=== PATIENT | female | born 1975 | race Caucasian/White ===

== ENCOUNTER → 2016-10-05 | Outpatient (CLI) | payer BC ==
--- NOTE | 2016-10-05 13:32 | XR ---
Lumbosacral spine HISTORY: Low back pain 5 views of the lumbosacral spine Bone mineralization, joint spaces and alignment are maintained. Surgical clips present in the upper a bdomen. There is a mild spinal curvature. No evident spondylolysis. Loss of disc height present at L5 -S1, there is associated spondylosis. Sclerosis present in the posterior elements compatible with fac et arthropathy. IMPRESSION: Degenerative disc disease, consider lumbar MRI. Facet arthropathy L5-S1.
== END | disposition home or self-care (01) ==
LOC: RADXRYALE 10:48
PROVIDERS: ATTEND Internal Medicine
DX: M51.37 Other intervertebral disc degeneration, lumbosacral region (principal); M46.07 Spinal enthesopathy, lumbosacral region
CPT/HCPCS: 72110

== ENCOUNTER → 2016-10-23 | Outpatient (CLI) | payer BC ==
--- NOTE | 2016-10-23 15:59 | MR ---
EXAMINATION TYPE: MR lumbar spine wo con DATE OF EXAM: 10/23/2016 COMPARISON: NONE HISTORY: 40-year-old female with low back pain into left leg, numbness in left leg TECHNIQUE: Multiplanar, multisequence images of the lumbar spine were acquired. FINDINGS: Vertebral body heights are preserved and alignment is maintained. No suspicious bone marrow replacement. Conus medullaris is normal. There is mild facet degenerative change within the lower lumbar spine. Additional degenerative disc disease at L4-L5 and L5-S1 with disc desiccation. There is moderate to s evere disc height loss at L5-S1 and bulging discs at both levels with posterior annular fissures. Modic type II fatty endplate change at L5-S1. From T12 through L4 levels, no significant spinal canal or neuroforaminal stenosis. At L4-L5, there is mild facet degenerative change in the small central disc protrusion with annular f issure. This impresses on the ventral thecal sac but does not contribute any significant spinal canal or neuroforaminal stenosis. At L5-S1, there is a broad-based central disc protrusion with annular fissure. Disc material closely approaches and may abut the traversing left S1 nerve root, sagittal images 5 and 6. On the right, dis c material closely approaches the nerve root without clear nerve root abutment. There is also mild na rrowing of the bilateral neuroforamina. No prevertebral or paravertebral soft tissue abnormality. IMPRESSION: 1. Moderate to severe degenerative disc disease at L5-S1 with associated Modic type II endplate harrison e. Mild degenerative disc disease at L4-L5. Annular fissures at both of these levels. 2. Along with mild facet arthropathy lower lumbar spine, there is mild narrowing of the bilateral L5- S1 neuroforamina. 3. At L5-S1, disc material closely approaches and may abut the traversing left S1 nerve root.
== END | disposition home or self-care (01) ==
LOC: RADMRIMAIN 13:04
PROVIDERS: ATTEND Internal Medicine
DX: M99.73 Connective tissue and disc stenosis of intervertebral foramina of lumbar region (principal); M51.36 Other intervertebral disc degeneration, lumbar region; M51.37 Other intervertebral disc degeneration, lumbosacral region; M46.86 Other specified inflammatory spondylopathies, lumbar region
CPT/HCPCS: 72148

== ENCOUNTER → 2017-06-11 | Outpatient (CLI) | payer BC | END | disposition home or self-care (01) | LOC: RADECHMAIN 12:36 | PROVIDERS: ATTEND Internal Medicine | DX: R00.0 Tachycardia, unspecified (principal) | CPT/HCPCS: 93270; 93271 ==

== ENCOUNTER → 2018-01-30 | Outpatient (CLI) | payer BC ==
--- NOTE | 2018-01-30 13:45 | XR ---
EXAMINATION TYPE: XR chest 2V DATE OF EXAM: 01/30/2018 COMPARISON: NONE TECHNIQUE: PA and lateral views submitted. HISTORY: CHEST PAIN FINDINGS: The lungs are clear and there is no pneumothorax, pleural effusion, or focal pneumonia. Mild cardio megaly. IMPRESSION: 1. No acute process.
== END ==
LOC: RADXRYALE 13:20
PROVIDERS: ATTEND Internal Medicine
DX: R07.89 Other chest pain (principal)
CPT/HCPCS: 71046

== ENCOUNTER 2019-01-23 11:41 | Observation (INO) | payer BC ==
--- NOTE | 2019-01-23 12:12 | ED ---
General Adult HPI - General Chief complaint: Headache Stated complaint: Headache Time Seen by Provider: 01/23/19 11:53 Source: patient, RN notes reviewed Mode of arrival: ambulatory Limitations: no limitations - History of Present Illness Initial comments: Patient is a pleasant 43-year-old female presenting to the emergency department with complaint of headache. Patient does have chronic headaches. Patient has had headaches similar to this a proximally 4 times previously. Headache occurred yesterday afternoon. Patient states headache was 5 or 6/10. Discomfort was the top of her head somewhat on the left side. Patient still has mild discomfort, near resolved. Patient states discomfort did feel like there was fluid going from the top of her head down to the left side. Patient has previously had this for times in the past. Patient also had some sharp sided chest discomfort yesterday. No associated dyspnea, nausea, or diaphoresis. Lisbeth cardenas has had similar chest discomfort previously. No chest discomfort since that time. Chest discomfort yesterday lasted around 15 minutes. - Related Data Home Medications Medication Instructions Recorded Confirmed Cyclobenzaprine [Flexeril] 5 mg PO HS PRN 01/23/19 01/23/19 Lisinopril [Zestril] 5 mg PO DAILY 01/23/19 01/23/19 Metoprolol Succinate [Toprol XL] 12.5 mg PO HS 01/23/19 01/23/19 Allergies Allergy/AdvReac Type Severity Reaction Status Date / Time hydromorphone HCl Allergy Abdominal Verified 01/23/19 12:08 [From Dilaudid] Pain Review of Systems ROS Statement: Those systems with pertinent positive or pertinent negative responses have been documented in the HPI. ROS Other: All systems not noted in ROS Statement are negative. Constitutional: Denies: fever Eyes: Denies: eye pain, vision change ENT: Denies: ear pain Respiratory: Denies: dyspnea Cardiovascular: Reports: as per HPI. Denies: palpitations Endocrine: Denies: fatigue Genitourinary: Denies: dysuria Musculoskeletal: Denies: back pain Skin: Denies: rash Neurological: Reports: as per HPI. Denies: weakness, confusion Past Medical History Past Medical History: Osteoarthritis (OA) Additional Past Medical History / Comment(s): MIGRAINES, History of Any Multi-Drug Resistant Organisms: None Reported Past Surgical History: Section, Cholecystectomy, Orthopedic Surgery Additional Past Surgical History / Comment(s): ARTHROPSCOPIC RIGHT KNEE, GASTRIC SLEEVE, ESSURE Past Anesthesia/Blood Transfusion Reactions: Previous Problems w/ Anesthesia Additional Past Anesthesia/Blood Transfusion Reaction / Comment(s): PROBLEMS WITH INTUBATION" Past Psychological History: No Psychological Hx Reported Smoking Status: Never smoker Past Alcohol Use History: Rare Past Drug Use History: None Reported - Past Family History Mother Family Medical History: Deep Vein Thrombosis (DVT) General Exam Limitations: no limitations General appearance: alert, in no apparent distress Head exam: Present: normocephalic Eye exam: Present: normal appearance, PERRL, EOMI. Absent: nystagmus ENT exam: Present: normal oropharynx Neck exam: Present: normal inspection Respiratory exam: Present: normal lung sounds bilaterally. Absent: chest wall tenderness Cardiovascular Exam: Present: regular rate, normal rhythm Expanded Peripheral pulses: 2+: Radial (R), Radial (L) GI/Abdominal exam: Present: soft. Absent: tenderness Extremities exam: Present: normal inspection. Absent: pedal edema, calf t enderness Neurological exam: Present: alert, CN II-XII intact. Absent: motor sensory deficit Expanded Neurological exam: Present: protecting the airway Cranial nerves: EOM's Intact: Normal Motor strength exam: RUE: 5, LUE: 5, RLE: 5, LLE: 5 Eye Response: (4) open spontaneously Motor Response: (6) obeys commands Verbal Response: (5) oriented Psychiatric exam: Present: normal affect, normal mood Skin exam: Present: normal color Course Vital Signs 01/23/19 01/23/19 01/23/19 11:50 12:40 14:49 Temperature 97.7 F Pulse Rate 74 70 79 Respiratory 20 18 18 Rate Blood Pressure 156/104 149/96 175/91 O2 Sat by Pulse 98 97 100 Oximetry EKG Findings - EKG Comments: EKG Findings:: Normal sinus rhythm 80. LA 144. QRS 94. QT 362. QTC 417. Normal axis. Normal QRS. Nonspecific T waves. Medical Decision Making - Medical Decision Making Patient reevaluated and resting comfortably in bed. Patient updated on results and plan. Case was discussed in detail with Dr. Núñez, who will admit covering for Dr. Presley. - Lab Data Result diagrams: 01/23/19 12:35 01/23/19 12:35 Lab Results 01/23/19 01/23/19 01/23/19 Range/Units 12:35 12:35 12:35 WBC 6.7 (3.8-10.6) k/uL RBC 4.27 (3.80-5.40) m/uL Hgb 12.1 (11.4-16.0) gm/dL Hct 38.5 (34.0-46.0) % MCV 90.0 (80.0-100.0) fL MCH 28.4 (25.0-35.0) pg MCHC 31.6 (31.0-37.0) g/dL RDW 13.0 (11.5-15.5) % Plt Count 316 (150-450) k/uL Neutrophils % 63 % Lymphocytes % 29 % Monocytes % 5 % Eosinophils % 1 % Basophils % 1 % Neutrophils # 4.2 (1.3-7.7) k/uL Lymphocytes # 1.9 (1.0-4.8) k/uL Monocytes # 0.4 (0-1.0) k/uL Eosinophils # 0.1 (0-0.7) k/uL Basophils # 0.1 (0-0.2) k/uL PT 10.1 (9.0-12.0) sec INR 0.9 (<1.2) APTT 26.9 (22.0-30.0) sec D-Dimer <0.17 (<0.60) mg/L FEU Sodium 140 (137-145) mmol/L Potassium 4.2 (3.5-5.1) mmol/L Chloride 108 H (98-107) mmol/L Carbon Dioxide 28 (22-30) mmol/L Anion Gap 4 mmol/L BUN 8 (7-17) mg/dL Creatinine 0.56 (0.52-1.04) mg/dL Est GFR (CKD-EPI)AfAm >90 (>60 ml/min/1.73 sqM) Est GFR (CKD-EPI)NonAf >90 (>60 ml/min/1.73 sqM) Glucose 93 (74-99) mg/dL Calcium 9.1 (8.4-10.2) mg/dL Magnesium 1.6 (1.6-2.3) mg/dL Total Bilirubin 0.3 (0.2-1.3) mg/dL AST 17 (14-36) U/L ALT 19 (9-52) U/L Alkaline Phosphatase 57 (38-126) U/L Troponin I (0.000-0.034) ng/mL Total Protein 6.8 (6.3-8.2) g/dL Albumin 3.8 (3.5-5.0) g/dL 01/23/19 Range/Units 12:35 WBC (3.8-10.6) k/uL RBC (3.80-5.40) m/uL Hgb (11.4-16.0) gm/dL Hct (34.0-46.0) % MCV (80.0-100.0) fL MCH (25.0-35.0) pg MCHC (31.0-37.0) g/dL RDW (11.5-15.5) % Plt Count (150-450) k/uL Neutrophils % % Lymphocytes % % Monocytes % % Eosinophils % % Basophils % % Neutrophils # (1.3-7.7) k/uL Lymphocytes # (1.0-4.8) k/uL Monocytes # (0-1.0) k/uL Eosinophils # (0-0.7) k/uL Basophils # (0-0.2) k/uL PT (9.0-12.0) sec INR (<1.2) APTT (22.0-30.0) sec D-Dimer (<0.60) mg/L FEU Sodium (137-145) mmol/L Potassium (3.5-5.1) mmol/L Chloride (98-107) mmol/L Carbon Dioxide (22-30) mmol/L Anion Gap mmol/L BUN (7-17) mg/dL Creatinine (0.52-1.04) mg/dL Est GFR (CKD-EPI)AfAm (>60 ml/min/1.73 sqM) Est GFR (CKD-EPI)NonAf (>60 ml/min/1.73 sqM) Glucose (74-99) mg/dL Calcium (8.4-10.2) mg/dL Magnesium (1.6-2.3) mg/dL Total Bilirubin (0.2-1.3) mg/dL AST (14-36) U/L ALT (9-52) U/L Alkaline Phosphatase (38-126) U/L Troponin I <0.012 (0.000-0.034) ng/mL Total Protein (6.3-8.2) g/dL Albumin (3.5-5.0) g/dL - Radiology Data Radiology results: report reviewed (Computed tomography scan of the brain and CTA of the brain revealed no acute process. No aneurysm.), image reviewed (Chest x-ray shows no acute process) Disposition Clinical Impression: Headache, Chest pain Disposition: ADMITTED IP TO THIS HOSP Is patient prescribed a controlled substance at d/c from ED?: No Referrals: Caroline Presley MD [Primary Care Provider] - 1-2 days Decision Time: 15:37
[2019-01-23 12:59] LABS: Basophils # (A) 0.1 k/uL (0-0.2); Basophils % (A) 1 %; Eosinophils # (A) 0.1 k/uL (0-0.7); Eosinophils % (A) 1 %; HCT 38.5 % (34.0-46.0); HGB 12.1 gm/dL (11.4-16.0); Lymphocytes # (A) 1.9 k/uL (1.0-4.8); Lymphocytes % (A) 29 %; MCH 28.4 pg (25.0-35.0); MCHC 31.6 g/dL (31.0-37.0); Mean Platelet Volume 6.9; Monocytes # (A) 0.4 k/uL (0-1.0); Monocytes % (A) 5 %; Neutrophils # (A) 4.2 k/uL (1.3-7.7); Neutrophils % (A) 63 %; Platelet Count 316 k/uL (150-450); RBC 4.27 m/uL (3.80-5.40); WBC 6.7 k/uL (3.8-10.6)
[2019-01-23 13:08] LABS: ALT 19 U/L (9-52); AST 17 U/L (14-36); African American GFR (CKD) >90 (>60 ml/min/1.73 sqM); Albumin 3.8 g/dL (3.5-5.0); Alkaline Phosphatase 57 U/L (38-126); Anion Gap 4 mmol/L; Blood Urea Nitrogen 8 mg/dL (7-17); Calcium 9.1 mg/dL (8.4-10.2); Carbon Dioxide 28 mmol/L (22-30); Chloride 108 mmol/L (98-107); Glucose 93 mg/dL (74-99); Magnesium 1.6 mg/dL (1.6-2.3); Potassium 4.2 mmol/L (3.5-5.1); Sodium 140 mmol/L (137-145); Total Bilirubin 0.3 mg/dL (0.2-1.3); Total Protein 6.8 g/dL (6.3-8.2)
--- NOTE | 2019-01-23 13:12 | XR ---
EXAMINATION TYPE: XR chest 2V DATE OF EXAM: 01/23/2019 COMPARISON: Chest x-ray January 30, 2018 HISTORY: Chest discomfort and pain. TECHNIQUE: Frontal and lateral views of the chest are obtained. FINDINGS: There is no focal air space opacity, pleural effusion, or pneumothorax seen. The cardiac silhouette size is within normal limits. The osseous structures are intact. Cholecystectomy clips a re redemonstrated. IMPRESSION: No suspicious acute process.
[2019-01-23 13:19] LABS: INR 0.9 (<1.2); Partial Thromboplastin Time 26.9 sec (22.0-30.0); Prothrombin Time 10.1 sec (9.0-12.0)
[2019-01-23 13:28] LABS: D-Dimer <0.17 mg/L FEU (<0.60)
--- NOTE | 2019-01-23 14:54 | CT ---
EXAMINATION TYPE: CT brain wo con DATE OF EXAM: 01/23/2019 COMPARISON: None. HISTORY: Headache after episode of hypertension. CT DLP: 1068 mGycm. Automated Exposure Control for Dose Reduction was Utilized. TECHNIQUE: CT scan of the head is performed without contrast. FINDINGS: There is no acute intracranial hemorrhage, mass effect, or midline shift identified. The ventricles and sulci are within normal limits in size. Possible small arachnoid cyst high right fron alexis lobe axial image 44 measuring 2.3 x 1.5 cm. Possible small arachnoid cyst in the posterior aspect of the posterior fossa coronal image 58 for reference. The globes are intact and the visualized sinu ses are clear. IMPRESSION: No acute intracranial hemorrhage or midline shift is seen.
--- NOTE | 2019-01-23 14:58 | CT ---
EXAMINATION TYPE: CT angio head DATE OF EXAM: 01/23/2019 2:45 PM COMPARISON: Same day noncontrast CT. HISTORY: Headache post bout of high blood pressure CT DLP: 223.3 mGycm Automated exposure control for dose reduction was used. TECHNIQUE: Performed with IV Contrast, patient injected with 100 mL of Isovue 370. 3D reconstructed images are created on an independent workstation and reviewed.. FINDINGS: There is codominant vertebrobasilar system. Vertebral arteries are patent to basilar junction. There are hypoplastic bilateral posterior communicating arteries. There is no significant focal stenosis or aneurysmal change in the posterior circulation. Images of the anterior circulation show patent anterior communicating artery. No significant focal st enosis or aneurysmal change is seen. IMPRESSION: No aneurysmal change at the level of [place].
[2019-01-23] MEDS ORDERED: ASPIRIN 81 MG PO STA (15:37)
[2019-01-23] MEDS ORDERED: NITROGLYCERIN SL TABS 0.4 MG TAB SUBLINGUAL PRN (15:39)
[2019-01-23] MEDS ORDERED: LISINOPRIL 5 MG TAB PO STA (15:43)
[2019-01-23] MEDS ORDERED: METOPROLOL SUCCINATE (ER) 25 MG TAB.ER.24H PO STA (15:43)
[2019-01-23 16:30] VITALS: BMI 37.3
[2019-01-23] MEDS ORDERED: LISINOPRIL-HCTZ 20-12.5 MG 1 EACH TAB PO STA (18:29)
--- NOTE | 2019-01-23 18:55 | P.CRDCN ---
History of Present Illness History of present illness: This is Dr. Minor dictating a consult on this patient The patient was interviewed and examined by me Patient of Dr. Caroline Presley IMPRESSION / ASSESSMENT: Essential hypertension, uncontrolled/accelerated Lipid panel unknown Patient presented with headache which is now resolved line she did complain of chest discomfort under her left breast. First ECG is normal first troponin is normal Obesity, status post acid bypass surgery Past history of rapid heartbeat/palpitations, event monitor has shown a brief run of nonsustained ventricular tachycardia but during that period of event valeria toring she had no symptoms and definitely did not experience the usual palpitations Family history of DVT and pulmonary embolism, genetic evaluation not done. No personal history of DVT or pulmonary members and PLAN: Stop aspirin *Lisinopril hydrochlorothiazide 20/12.5 mg by mouth daily Lipid panel TSH and cortisol level I would recommend genetic workup and family for hypercoagulable state Low salt diet Home blood pressure monitoring Follow-up within 1-2 weeks I think this patient should not go home within the next 12 hours, continue lisinopril. 520/12.5 mg by mouth daily for 1-2 weeks before readjusting medications Home blood pressure monitoring and low-salt diet HPI 43-year-old female presenting with severe headache. She had a CTA and head CT. No abnormality noted Her blood pressures were quite high. Systolic and diastolic She has a history of obesity status post gastric bypass surgery almost [address] Olsen History and her blood pressure is high she was complaining of some discomfort under her left breast She is a past history of palpitations that were quite symptomatic about 2 years back She will event monitor but during the period of event monitoring she did not have any palpitations. Apparently nonsustained ventricular tachycardia was noted and she was treated by Dr. Caldwell with beta blockers She does not tolerate beta blockers well At the time my examination her blood pressure is still high at 161/92 mmHg on 75/90 1 mmHg and 149/96. His mercury She does not have any chest pain at this time nor does she have a headache ROS: No fever chills or rigors, no cough, phlegm or expectoration, no nausea, vomiting or diarrhea, no hematuria, dysuria, no musculoskeletal complaints, no strokes or seizures, no skin lesions. EXAMINATION: On admission her blood pressure was 156/104, 149/96 and 175/91 mmHg pulse rate in the 70s Normal respirations normal pulse ox Afebrile 97.7F At this time her blood pressure is still elevated Normal heart sounds normal S1 normal S2 Breath sounds are clear no rhonchi no crackles Abdomen is soft nontender Extent is warm no edema REVIEW OF LABS, ECG & MEDICAL DATA Twelve-lead ECG shows sinus rhythm normal NH narrow QRS normal delta waves normal QT interval normal ST segments CT of the head did not show any aneurysm in the [place] Hemoglobin 12.1 platelet count 316,000, white count 6 and 7000 Sodium 140, potassium 4.2, BUN 8, creatinine 0.56 First troponin is normal Follow 12-lead ECG shows sinus rhythm no change in ST segments as compared to the first ECG Past Medical History Past Medical History: Hypertension, Osteoarthritis (OA), Supraventricular Tachycardia (SVT) Additional Past Medical History / Comment(s): MIGRAINES, History of Any Multi-Drug Resistant Organisms: None Reported Past Surgical History: Section, Cholecystectomy, Orthopedic Surgery Additional Past Surgical History / Comment(s): ARTHROPSCOPIC RIGHT KNEE, GASTRIC SLEEVE, ESSURE Past Anesthesia/Blood Transfusion Reactions: Previous Problems w/ Anesthesia Additional Past Anesthesia/Blood Transfusion Reaction / Comment(s): PROBLEMS WITH INTUBATION" Past Psychological History: No Psychological Hx Reported Smoking Status: Never smoker Past Alcohol Use History: Rare Past Drug Use History: None Reported - Past Family History Mother Family Medical History: Deep Vein Thrombosis (DVT) Medications and Allergies Home Medications Medication Instructions Recorded Confirmed Type Cyclobenzaprine [Flexeril] 5 mg PO HS PRN 01/23/19 01/23/19 History Lisinopril [Zestril] 5 mg PO DAILY 01/23/19 01/23/19 History Metoprolol Succinate [Toprol XL] 12.5 mg PO HS 01/23/19 01/23/19 History Allergies Allergy/AdvReac Type Severity Reaction Status Date / Time hydromorphone HCl Allergy Abdominal Verified 01/23/19 12:08 [From Dilaudid] Pain Physical Exam Vitals: Vital Signs Temp Pulse Pulse Resp BP BP Pulse Ox 01/23/19 16:23 97.5 F L 66 18 161/92 100 01/23/19 16:01 98.0 F 76 18 139/90 100 01/23/19 16:00 66 18 01/23/19 14:49 79 18 175/91 100 01/23/19 12:40 70 18 149/96 97 01/23/19 11:50 97.7 F 74 20 156/104 98 Intake and Output 01/23/19 01/23/19 01/23/19 06:59 14:59 22:59 Other: Voiding Method Toilet Weight 107.955 kg Results 01/23/19 12:35 01/23/19 12:35 Cardiac Enzymes 01/23/19 01/23/19 Range/Units 12:35 12:35 AST 17 (14-36) U/L Troponin I <0.012 (0.000-0.034) ng/mL Coagulation 01/23/19 Range/Units 12:35 PT 10.1 (9.0-12.0) sec APTT 26.9 (22.0-30.0) sec CBC 01/23/19 Range/Units 12:35 WBC 6.7 (3.8-10.6) k/uL RBC 4.27 (3.80-5.40) m/uL Hgb 12.1 (11.4-16.0) gm/dL Hct 38.5 (34.0-46.0) % Plt Count 316 (150-450) k/uL Comprehensive Metabolic Panel 01/23/19 Range/Units 12:35 Sodium 140 (137-145) mmol/L Potassium 4.2 (3.5-5.1) mmol/L Chloride 108 H (98-107) mmol/L Carbon Dioxide 28 (22-30) mmol/L BUN 8 (7-17) mg/dL Creatinine 0.56 (0.52-1.04) mg/dL Glucose 93 (74-99) mg/dL Calcium 9.1 (8.4-10.2) mg/dL AST 17 (14-36) U/L ALT 19 (9-52) U/L Alkaline Phosphatase 57 (38-126) U/L Total Protein 6.8 (6.3-8.2) g/dL Albumin 3.8 (3.5-5.0) g/dL Current Medications Generic Name Dose Route Start Last Admin Trade Name Freq PRN Reason Stop Dose Admin Aspirin 325 mg 01/24/19 09:00 Aspirin PO DAILY SHELLI Lisinopril/HCTZ 1 each 01/24/19 09:00 Zestoretic 20-12.5 PO DAILY SHELLI Nitroglycerin 0.4 mg 01/23/19 15:39 Nitrostat SUBLINGUAL Q5M PRN Chest Pain Sodium Chloride 10 ml 01/23/19 21:00 Saline Flush IV BID SHELLI Intake and Output 01/23/19 01/23/19 01/23/19 06:59 14:59 22:59 Other: Voiding Method Toilet Weight 107.955 kg Patient Weight 01/24/19 06:59 Weight 107.955 kg 01/23/19 12:35 01/23/19 12:35
--- NOTE | 2019-01-23 22:15 | P.HPIM ---
History of Present Illness H&P Date: 01/23/19 Chief Complaint: Chest pain Patient is a 43-year-old female known history of hypertension, migraine headache, status post gastric bypass surgery, SVT currently on metoprolol and low-dose came to ER with complaints of headache. Patient says that she had sharp chest pain followed by 15 minutes at her patient had severe headache in the middle of the head. Chest pain is mainly left retrosternal under the left breast and lateral side of chest. Patient denied any radiation of the chest pain. Nose is sedated nausea vomiting or diaphoresis. Patient recommended by PCP to go to ER. Patient does have chronic migraine headache. Patient has history of event monitor placement. Chest pain lasted for 15 minutes. Patient is currently chest pain-free. CARMINE showed normal sinus rhythm. Patient had CT head and CT angiogram of the head was done showed no aneurysm and no acute intracranial process was noted. D-dimer not elevated Troponin 2 negative. Review of Systems Constitutional: Patient denies any fever or chills . No generalized weakness or weight loss. Abdomen: Patient denied nausea vomiting and diarrhea and abdominal pain. Cardiovascular: Chest pain without short of breath no palpitations. Respiratory: patient denied any cough is from production. No shortness of breath Neurologic: Patient denied any numbness or tingling patient does have headache. Musculoskeletal: Patient denies any complaints of joint swelling or deformity. Skin: Negative Psychiatric: Negative Endocrine: No heat or cold intolerance. No recent weight gain. Genitourinary: No dysuria or hematuria. All other 14 point ROS negative except the above Past Medical History Past Medical History: Hypertension, Osteoarthritis (OA), Supraventricular Tachycardia (SVT) Additional Past Medical History / Comment(s): MIGRAINES, History of Any Multi-Drug Resistant Organisms: None Reported Past Surgical History: Section, Cholecystectomy, Orthopedic Surgery Additional Past Surgical History / Comment(s): ARTHROPSCOPIC RIGHT KNEE, GASTRIC SLEEVE, ESSURE Past Anesthesia/Blood Transfusion Reactions: Previous Problems w/ Anesthesia Additional Past Anesthesia/Blood Transfusion Reaction / Comment(s): PROBLEMS WITH INTUBATION" Past Psychological History: No Psychological Hx Reported Smoking Status: Never smoker Past Alcohol Use History: Rare Past Drug Use History: None Reported - Past Family History Mother Family Medical History: Deep Vein Thrombosis (DVT) Medications and Allergies Home Medications Medication Instructions Recorded Confirmed Type Cyclobenzaprine [Flexeril] 5 mg PO HS PRN 10/11/19 10/11/19 History Lisinopril-Hctz 20-12.5 mg 1 tab PO DAILY #90 tab 01/23/19 Rx [Zestoretic 20-12.5] Allergies Allergy/AdvReac Type Severity Reaction Status Date / Time hydromorphone HCl Allergy Abdominal Verified 01/23/19 12:08 [From Dilaudid] Pain Physical Exam Vitals: Vital Signs Temp Pulse Pulse Resp BP BP Pulse Ox 01/23/19 19:47 71 17 01/23/19 19:33 97.9 F 71 17 121/83 98 01/23/19 16:23 97.5 F L 66 18 161/92 100 01/23/19 16:01 98.0 F 76 18 139/90 100 01/23/19 16:00 66 18 01/23/19 14:49 79 18 175/91 100 01/23/19 12:40 70 18 149/96 97 01/23/19 11:50 97.7 F 74 20 156/104 98 Intake and Output 01/23/19 01/23/19 01/23/19 06:59 14:59 22:59 Other: Voiding Method Toilet Weight 107.955 kg PHYSICAL EXAMINATION: Patient is lying in the bed comfortably, no acute distress, awake alert and oriented.. HEENT: Normocephalic. Neck is supple. Pupils reactive. Nostrils clear. Oral cavity is moist. Ears reveal no drainage. Neck reveals no JVD, carotid bruits, or thyromegaly. CHEST EXAMINATION: Trachea is central. Symmetrical expansion. Lung echevarria clear to auscultation and percussion. CARDIAC: Normal S1, S2 with no gallops. No murmurs ABDOMEN: Soft. Bowel sounds normal. No organomegaly. No abdominal bruits. Extremities: reveal no edema. No clubbing or cyanosis Neurologically awake, alert, oriented x3 with well-coordinated movements. No focal deficits noted Skin: No rash or skin lesions. Psychiatric: Coperative. Nonsuicidal Musculoskeletal: No joint swelling or deformity. Normal range of motion. Results CBC & Chem 7: 01/23/19 12:35 01/23/19 12:35 Labs: Abnormal Lab Results - Last 24 Hours (Table) 01/23/19 Range/Units 12:35 Chloride 108 H (98-107) mmol/L Thrombosis Risk Factor Assmnt - DVT/VTE Prophylaxis DVT/VTE Prophylaxis: Pharmacologic Prophylaxis ordered - Choose All That Apply Any of the Below Risk Factors Present?: Yes Each Factor Represents 1 point: Age 41-60 years, Obesity (BMI >25) Other Risk Factors: No Thrombosis Risk Factor Assessment Total Risk Factor Score: 2 Thrombosis Risk Factor Assessment Level: Low Risk Assessment and Plan Assessment: Chest pain/chest discomfort along with headache. Resolving now. Ruled out ACS. Uncontrolled hypertension History of migraine headaches. Currently not on any medications. History of SVT History of gastric bypass surgery History of palpitations and event monitor placement with no arrhythmia noted History of left lower leg numbness DVT prophylaxis Plan: Patient will be continued on telemetry monitoring. Serial EKG and troponin 2 negative. Patient was started on lisinopril/hydrochlorothiazide for better blood pressure control. Cardiology is following. Follow-up TSH and cortisol levels. Outpatient workup for hypercoagulable state with account by cardiology. Further recommendations based on the clinical course. Time with Patient: Greater than 30
[2019-01-23] MEDS: HEPARIN SODIUM,PORCINE 5,000 UNIT/ML 1 ML VIAL SQ SCH (23:04)
[2019-01-24] MEDS ORDERED: ACETAMINOPHEN TAB 325 MG TAB PO PRN (06:35)
--- NOTE | 2019-01-24 07:19 | P.PN ---
Progress Note - Text Progress Note Date: 01/24/19 This is a 43-year-old female patient with a past medical history significant for obesity was admitted to the hospital with hypertension emergency. The patient was experiencing headache as well as chest discomfort. On follow-up with her today, she is asymptomatic. She started having very mild headache but no chest pain or chest discomfort. The pressure seems to be under good control. No history of coronary artery disease. From the cardiovascular standpoint of view, the patient need to have a stress test to rule out severe underlying coronary artery disease and that probably can be done as an outpatient. Meanwhile I will continue the current medical regimen. She would like to be discharged home.
[2019-01-24] MEDS: HEPARIN SODIUM,PORCINE 5,000 UNIT/ML 1 ML VIAL SQ SCH (08:00)
[2019-01-24] MEDS ORDERED: LISINOPRIL-HCTZ 20-12.5 MG 1 EACH TAB PO SCH (09:00)
[2019-01-24] MEDS ORDERED: ASPIRIN 325 MG TAB PO SCH (09:00)
[2019-01-24] MEDS ORDERED: ASPIRIN 81 MG PO SCH (09:00)
[2019-01-24 12:06] VITALS: BP 126/82; PULSE 68; RESP 16; TEMP 98.1
--- NOTE | 2019-02-03 20:51 | P.DS ---
Providers Date of admission: 01/23/19 15:39 Expected date of discharge: 01/24/19 Attending physician: Sabine Núñez Consults: 01/23/19 15:39 Consult Physician Urgent Consulting Provider: Jaron Fernández Consult Reason/Comments: cp Do you want consulting provider notified?: Yes Primary care physician: Caroline Presley [facility] Hospital Course: Discharge diagnosis Chest pain/chest discomfort along with headache. Resolving now. Ruled out ACS. Uncontrolled hypertension History of migraine headaches. Currently not on any medications. History of SVT History of gastric bypass surgery History of palpitations and event monitor placement with no arrhythmia noted History of left lower leg numbness DVT prophylaxis . Hospital course Patient is a 43-year-old female known history of hypertension, migraine headache, status post gastric bypass surgery, SVT currently on metoprolol and low-dose came to ER with complaints of headache. Patient says that she had sharp chest pain followed by 15 minutes at her patient had severe headache in the middle of the head. Chest pain is mainly left retrosternal under the left breast and lateral side of chest. Patient denied any radiation of the chest pain. Nose is sedated nausea vomiting or diaphoresis. Patient recommended by PCP to go to ER. Patient does have chronic migraine headache. Patient has history of event monitor placement. Chest pain lasted for 15 minutes. Patient is currently chest pain-free. CARMINE showed normal sinus rhythm. Patient had CT head and CT angiogram of the head was done showed no aneurysm and no acute intracranial process was noted. D-dimer not elevated Troponin 2 negative. Patient was continued on telemetry monitoring. Serial EKG and troponin 2 negative. Patient was started on lisinopril/hydrochlorothiazide for better blood pressure control. Cardiology is following. Follow-up TSH and cortisol levels. Outpatient workup for hypercoagulable state with account by cardiology. Patient currently denied any complaints of chest pain or shortness of breath. Hemodynamically stable PHYSICAL EXAMINATION: Patient is lying in the bed comfortably, no acute distress, awake alert and oriented.. HEENT: Normocephalic. Neck is supple. Pupils reactive. Nostrils clear. Oral cavity is moist. Ears reveal no drainage. Neck reveals no JVD, carotid bruits, or thyromegaly. CHEST EXAMINATION: Trachea is central. Symmetrical expansion. Lung echevarria clear to auscultation and percussion. CARDIAC: Normal S1, S2 with no gallops. No murmurs ABDOMEN: Soft. Bowel sounds normal. No organomegaly. No abdominal bruits. Extremities: reveal no edema. No clubbing or cyanosis Neurologically awake, alert, oriented x3 with well-coordinated movements. No focal deficits noted Skin: No rash or skin lesions. Psychiatric: Coperative. Nonsuicidal Musculoskeletal: No joint swelling or deformity. Normal range of motion. Discharge vitals reviewed. Patient Condition at Discharge: Stable Plan - Discharge Summary Discharge Rx Participant: No New Discharge Prescriptions: New Lisinopril-Hctz 20-12.5 mg [Zestoretic 20-12.5] 1 tab PO DAILY #90 tab Continue Cyclobenzaprine [Flexeril] 5 mg PO HS PRN PRN Reason: Muscle Spasm Discontinued Metoprolol Succinate [Toprol XL] 12.5 mg PO HS Lisinopril [Zestril] 5 mg PO DAILY Discharge Medication List Cyclobenzaprine [Flexeril] 5 mg PO HS PRN 01/23/19 [History] Lisinopril-Hctz 20-12.5 mg [Zestoretic 20-12.5] 1 tab PO DAILY #90 tab 01/23/19 [Rx] Follow up Appointment(s)/Referral(s): Sudhakar Minor MD [STAFF PHYSICIAN] - 1 Week Caroline Presley MD [Primary Care Provider] - 1-2 days Discharge Disposition: HOME SELF-CARE
== END 2019-01-24 12:11 | disposition home or self-care (01) ==
LOC: EC 11:41 → 1SOBS 15:39
PROVIDERS: ADMIT Internal Medicine; ATTEND Internal Medicine
DX: R07.89 Other chest pain (principal); G43.909 Migraine, unspecified, not intractable, without status migrainosus; I10 Essential (primary) hypertension; I47.1 Supraventricular tachycardia; Z95.818 Presence of other cardiac implants and grafts; R20.0 Anesthesia of skin; R00.2 Palpitations; Z98.84 Bariatric surgery status; E66.9 Obesity, unspecified; Z68.37 Body mass index [BMI] 37.0-37.9, adult; I16.1 Hypertensive emergency; M19.90 Unspecified osteoarthritis, unspecified site; Z90.49 Acquired absence of other specified parts of digestive tract; Z88.5 Allergy status to narcotic agent; Z79.899 Other long term (current) drug therapy; Z83.2 Family history of diseases of the blood and blood-forming organs and certain disorders involving the immune mechanism
CPT/HCPCS: 93005 ×2; 96372; 99285; 36415; 94760; 85379; 80061; 80053; 82533; 83735; 84443; 84484 ×2; 85025; 85610; 85730; 71046; 70496; 70450; G0378 ×2; J1644; Q9967

== ENCOUNTER → 2019-03-14 | Outpatient (CLI) | payer BC ==
--- NOTE | 2019-03-14 08:52 | MR ---
MRI CERVICAL SPINE: CLINICAL HISTORY: Cervical region radiculopathy. TECHNIQUE: Multiplanar, multisequence imaging of the cervical spine is performed without IV contrast. COMPARISON: None. FINDINGS: Sagittal images of the cervical spine show the craniocervical junction to appear within nor mal limits. Prominent CSF posterior aspect posterior fossa noted. Possible magna cisterna magna. The cervical and upper thoracic spinal cord is normal in caliber and signal. Vertebral alignment is str aightened. There is slight grade 1 retrolisthesis C6 on C7 The vertebral body heights are normal. Mil d to moderate disc space narrowing C6-C7 level. Some heterogeneous Modic type II endplate changes ant erior inferior C5 level for reference. Axial images show the C2-C3, C3-C4, C4-C5 level to be within normal limits. Axial images at C5-C6 level show right paracentral disc protrusion effacing anterolateral thecal sac up to ventral surface of spinal cord axial image 21, bilateral neural foramina are patent. Axial images at C6-C7 level shows spondylosis with broad-based posterior disc protrusion effacing ant erior thecal sac and causing mild bilateral neural foraminal narrowing. Axial images at C7-T1 level are within normal limits. IMPRESSION: Straightening of cervical spine with degenerative changes C5-C6 and C6-C7 level noted as detailed above.
--- NOTE | 2019-03-14 09:14 | MR ---
EXAMINATION TYPE: MR brain wo/w con DATE OF EXAM: 03/14/2019 COMPARISON: CT brain January 23, 2019 HISTORY: Arachnoid cysts TECHNIQUE: Multiplanar, multisequence images of the brain and brainstem is performed without and with IV contras t, utilizing 10 mL intravenous Gadavist . FINDINGS: Diffusion weighted images demonstrate no evidence of a recent infarct or other diffusion ab normality. There is no extra-axial fluid collection or significant white matter signal abnormality. The ventricular system and cisternal spaces are normal in size and appearance. The brain volume is age appropriate. There is increased CSF prominence in the posterior aspect of the posterior fossa fos sa slightly more prominent on the left correlates with recent CT. Midline structures demonstrate normal morphology. The craniocervical junction appears within normal limits. Post contrast images demonstrate no abnormal enhancement. The dural venous sinuses appear pa tent. The visualized sinuses are clear and the globes are intact. IMPRESSION: Possible small left greater than right adjacent arachnoid cyst posterior aspect posterior fossa or megacisterna magna. No high right frontal extra-axial lesion or arachnoid cyst. No enhancin g masses are noted.
== END | disposition home or self-care (01) ==
LOC: RADMRIMAIN 08:02
PROVIDERS: ATTEND Specialist
DX: M99.71 Connective tissue and disc stenosis of intervertebral foramina of cervical region (principal); M48.02 Spinal stenosis, cervical region; M50.122 Cervical disc disorder at C5-C6 level with radiculopathy; M43.12 Spondylolisthesis, cervical region; M47.22 Other spondylosis with radiculopathy, cervical region; G93.0 Cerebral cysts
CPT/HCPCS: 70553; 72141; A9585

== ENCOUNTER 2019-06-09 13:05 | Emergency (ER) | payer BC ==
[2019-06-09 13:23] VITALS: TEMP 98.7
[2019-06-09] MEDS ORDERED: SODIUM CHLORIDE 0.9% 1,000 ML IV STA (14:13)
[2019-06-09] MEDS ORDERED: ONDANSETRON 4 MG/2 ML VIAL IVP STA (14:13)
[2019-06-09] MEDS ORDERED: KETOROLAC 30 MG/ML 1 ML VIAL IVP STA (14:13)
[2019-06-09 14:29] LABS: Appearance,Urine Clear (Clear); Bilirubin,Urine Negative (Negative); Blood,Urine Negative (Negative); Color,Urine Yellow; Glucose,Urine (UA) Negative (Negative); Ketones,Urine Negative (Negative); Leukocyte Esterase,Urine Negative (Negative); Nitrite,Urine Negative (Negative); Protein,Urine Trace (Negative); Specific Gravity,Urine 1.019 (1.001-1.035); Urobilinogen,Urine <2.0 mg/dL (<2.0)
[2019-06-09 14:31] LABS: Basophils % (A) 0 %; Eosinophils # (A) 0.3 k/uL (0-0.7); Eosinophils % (A) 3 %; HCT 38.2 % (34.0-46.0); HGB 12.6 gm/dL (11.4-16.0); Lymphocytes # (A) 2.5 k/uL (1.0-4.8); Lymphocytes % (A) 29 %; MCH 29.3 pg (25.0-35.0); MCHC 33.1 g/dL (31.0-37.0); MCV 88.6 fL (80.0-100.0); Mean Platelet Volume 8.6; Monocytes # (A) 0.4 k/uL (0-1.0); Monocytes % (A) 4 %; Neutrophils # (A) 5.2 k/uL (1.3-7.7); Neutrophils % (A) 62 %; Platelet Count 287 k/uL (150-450); RBC 4.31 m/uL (3.80-5.40); RDW 12.8 % (11.5-15.5); WBC 8.5 k/uL (3.8-10.6)
[2019-06-09 14:37] LABS: INR 0.9 (<1.2); Partial Thromboplastin Time 24.6 sec (22.0-30.0); Prothrombin Time 9.6 sec (9.0-12.0)
[2019-06-09 14:43] LABS: ALT 14 U/L (4-34); AST 21 U/L (14-36); African American GFR (CKD) >90 (>60 ml/min/1.73 sqM); Albumin 4.1 g/dL (3.5-5.0); Alkaline Phosphatase 71 U/L (38-126); Amylase 63 U/L (30-110); Anion Gap 8 mmol/L; Blood Urea Nitrogen 9 mg/dL (7-17); Calcium 9.2 mg/dL (8.4-10.2); Carbon Dioxide 26 mmol/L (22-30); Chloride 106 mmol/L (98-107); Glucose 97 mg/dL (74-99); Non-African American GFR(CKD) >90 (>60 ml/min/1.73 sqM); Potassium 3.9 mmol/L (3.5-5.1); Sodium 140 mmol/L (137-145); Total Bilirubin 0.1 mg/dL (0.2-1.3); Total Protein 7.4 g/dL (6.3-8.2)
--- NOTE | 2019-06-09 14:54 | ED ---
Abdominal Pain HPI - General Chief Complaint: Abdominal Pain Stated Complaint: Not feeling well Time Seen by Provider: 06/09/19 13:50 Source: patient Mode of arrival: ambulatory Limitations: no limitations - History of Present Illness Initial Comments: Patient is a 43-year-old female presenting to emergency Department with complaints of abdominal pain 2 days. Patient states she's been having epigastric pain as well as right sided pain that radiates from the right low back into the right lower quadrant. Patient states she has had associated diarrhea and nausea. Patient has tried Tylenol and Motrin without relief. She has history of gastric sleeve surgery, cholecystectomy, hysterectomy, no other abdominal surgeries. She denies vomiting, fever, chest pain, shortness of breath. She has no other complaints at this time. Upon arrival to the ER, Asians BP is elevated at 180/101, rest of vitals are normal. Patient states she has not taken her blood pressure medication today. - Related Data Home Medications Medication Instructions Recorded Confirmed Cyclobenzaprine [Flexeril] 5 mg PO HS PRN 01/23/19 01/23/19 Previous Rx's Medication Instructions Recorded Lisinopril-Hctz 20-12.5 mg 1 tab PO DAILY #90 tab 01/23/19 [Zestoretic 20-12.5] Ondansetron Odt [Zofran Odt] 4 mg PO Q8HR PRN #10 tab 06/09/19 Allergies Allergy/AdvReac Type Severity Reaction Status Date / Time hydromorphone HCl Allergy Abdominal Verified 06/09/19 13:23 [From Dilaudid] Pain Review of Systems ROS Statement: Those systems with pertinent positive or pertinent negative responses have been documented in the HPI. ROS Other: All systems not noted in ROS Statement are negative. Past Medical History Past Medical History: Hypertension, Osteoarthritis (OA), Supraventricular Tachycardia (SVT) Additional Past Medical History / Comment(s): MIGRAINES, History of Any Multi-Drug Resistant Organisms: None Reported Past Surgical History: Section, Cholecystectomy, Orthopedic Surgery Additional Past Surgical History / Comment(s): ARTHROPSCOPIC RIGHT KNEE, GASTRIC SLEEVE, ESSURE Past Anesthesia/Blood Transfusion Reactions: Previous Problems w/ Anesthesia Additional Past Anesthesia/Blood Transfusion Reaction / Comment(s): PROBLEMS WITH INTUBATION" Past Psychological History: No Psychological Hx Reported Smoking Status: Never smoker Past Alcohol Use History: Rare Past Drug Use History: None Reported - Past Family History Mother Family Medical History: Deep Vein Thrombosis (DVT) General Exam - General Exam Comments Initial Comments: GENERAL: Well-appearing, well-nourished and in no acute distress, but appears uncomfort able. HEAD: Atraumatic, normocephalic. EYES: Pupils equal round and reactive to light, extraocular movements intact, sclera anicteric, conjunctiva are normal. ENT: TMs normal, nares patent, oropharynx clear without exudates. Moist mucous membranes. NECK: Normal range of motion, supple without lymphadenopathy or JVD. LUNGS: Breath sounds clear to auscultation bilaterally and equal. No wheezes rales or rhonchi. HEART: Regular rate and rhythm without murmurs, rubs or gallops. ABDOMEN: Tender to palpation epigastric and right side of abdomen including right flank and right lower quadrant. Soft, normoactive bowel sounds. No guarding, no rebound. No masses appreciated. : Deferred EXTREMITIES: Normal range of motion, no pitting or edema. No clubbing or cyanosis. NEUROLOGICAL: Normal speech, normal gait. PSYCH: Normal mood, normal affect. SKIN: Warm, Dry, normal turgor, no rashes or lesions noted. Limitations: no limitations Course Vital Signs 06/09/19 06/09/19 13:21 15:56 Temperature 98.7 F Pulse Rate 71 86 Respiratory 20 16 Rate Blood Pressure 180/101 183/98 O2 Sat by Pulse 100 98 Oximetry Medical Decision Making - Medical Decision Making Patient is a 43-year-old female presenting with epigastric and right sided abdominal pain for 2 days. She has associated nausea and diarrhea. BP is elevated on arrival but afebrile. Lab work shows no acute abnormalities, urine is normal. Computed tomography scan also shows no acute abnormalities. Patient was given some fluids, Toradol, Zofran. She reports improvement in her symptoms. I discussed with patient this most likely viral in nature given her diarrhea as well. She will continue to take Tylenol as needed for discomfort and I will give her prescription for Zofran as needed for nausea. She is in agreement with this plan of care. Return parameters were discussed with the patient she verbalized understanding. Case discussed with Dr. Garcia. - Lab Data Result diagrams: 06/09/19 14:05 06/09/19 14:05 Lab Results 06/09/19 06/09/19 06/09/19 Range/Units 14:05 14:05 14:05 WBC 8.5 (3.8-10.6) k/uL RBC 4.31 (3.80-5.40) m/uL Hgb 12.6 (11.4-16.0) gm/dL Hct 38.2 (34.0-46.0) % MCV 88.6 (80.0-100.0) fL MCH 29.3 (25.0-35.0) pg MCHC 33.1 (31.0-37.0) g/dL RDW 12.8 (11.5-15.5) % Plt Count 287 (150-450) k/uL Neutrophils % 62 % Lymphocytes % 29 % Monocytes % 4 % Eosinophils % 3 % Basophils % 0 % Neutrophils # 5.2 (1.3-7.7) k/uL Lymphocytes # 2.5 (1.0-4.8) k/uL Monocytes # 0.4 (0-1.0) k/uL Eosinophils # 0.3 (0-0.7) k/uL Basophils # 0.0 (0-0.2) k/uL PT 9.6 (9.0-12.0) sec INR 0.9 (<1.2) APTT 24.6 (22.0-30.0) sec Sodium 140 (137-145) mmol/L Potassium 3.9 (3.5-5.1) mmol/L Chloride 106 (98-107) mmol/L Carbon Dioxide 26 (22-30) mmol/L Anion Gap 8 mmol/L BUN 9 (7-17) mg/dL Creatinine 0.59 (0.52-1.04) mg/dL Est GFR (CKD-EPI)AfAm >90 (>60 ml/min/1.73 sqM) Est GFR (CKD-EPI)NonAf >90 (>60 ml/min/1.73 sqM) Glucose 97 (74-99) mg/dL Calcium 9.2 (8.4-10.2) mg/dL Total Bilirubin 0.1 L (0.2-1.3) mg/dL AST 21 (14-36) U/L ALT 14 (4-34) U/L Alkaline Phosphatase 71 (38-126) U/L Total Protein 7.4 (6.3-8.2) g/dL Albumin 4.1 (3.5-5.0) g/dL Amylase 63 (30-110) U/L Lipase 213 (23-300) U/L Urine Color Urine Appearance (Clear) Urine pH (5.0-8.0) Ur Specific [place] (1.001-1.035) Urine Protein (Negative) Urine Glucose (UA) (Negative) Urine Ketones (Negative) Urine Blood (Negative) Urine Nitrite (Negative) Urine Bilirubin (Negative) Urine Urobilinogen (<2.0) mg/dL Ur Leukocyte Esterase (Negative) 06/09/19 Range/Units 14:05 WBC (3.8-10.6) k/uL RBC (3.80-5.40) m/uL Hgb (11.4-16.0) gm/dL Hct (34.0-46.0) % MCV (80.0-100.0) fL MCH (25.0-35.0) pg MCHC (31.0-37.0) g/dL RDW (11.5-15.5) % Plt Count (150-450) k/uL Neutrophils % % Lymphocytes % % Monocytes % % Eosinophils % % Basophils % % Neutrophils # (1.3-7.7) k/uL Lymphocytes # (1.0-4.8) k/uL Monocytes # (0-1.0) k/uL Eosinophils # (0-0.7) k/uL Basophils # (0-0.2) k/uL PT (9.0-12.0) sec INR (<1.2) APTT (22.0-30.0) sec Sodium (137-145) mmol/L Potassium (3.5-5.1) mmol/L Chloride (98-107) mmol/L Carbon Dioxide (22-30) mmol/L Anion Gap mmol/L BUN (7-17) mg/dL Creatinine (0.52-1.04) mg/dL Est GFR (CKD-EPI)AfAm (>60 ml/min/1.73 sqM) Est GFR (CKD-EPI)NonAf (>60 ml/min/1.73 sqM) Glucose (74-99) mg/dL Calcium (8.4-10.2) mg/dL Total Bilirubin (0.2-1.3) mg/dL AST (14-36) U/L ALT (4-34) U/L Alkaline Phosphatase (38-126) U/L Total Protein (6.3-8.2) g/dL Albumin (3.5-5.0) g/dL Amylase (30-110) U/L Lipase (23-300) U/L Urine Color Yellow Urine Appearance Clear (Clear) Urine pH 6.0 (5.0-8.0) Ur Specific [place] 1.019 (1.001-1.035) Urine Protein Trace H (Negative) Urine Glucose (UA) Negative (Negative) Urine Ketones Negative (Negative) Urine Blood Negative (Negative) Urine Nitrite Negative (Negative) Urine Bilirubin Negative (Negative) Urine Urobilinogen <2.0 (<2.0) mg/dL Ur Leukocyte Esterase Negative (Negative) Disposition Clinical Impression: Abdominal pain, Viral illness Disposition: HOME SELF-CARE Condition: Stable Instructions (If sedation given, give patient instructions): Abdominal Pain (E D) Additional Instructions: Please return to the Emergency Department if symptoms worsen or any other concerns. May take Tylenol for abdominal pain. Use Zofran as needed for nausea. Follow up with PCP. Prescriptions: Ondansetron Odt [Zofran Odt] 4 mg PO Q8HR PRN #10 tab PRN Reason: Nausea Is patient prescribed a controlled substance at d/c from ED?: No Referrals: Caroline Presley MD [Primary Care Provider] - 1-2 days
--- NOTE | 2019-06-09 15:02 | CT ---
EXAMINATION TYPE: CT abdomen pelvis w con DATE OF EXAM: 06/09/2019 COMPARISON: NONE HISTORY: 43-year-old female Right sided abdominal pain-mid to lower quadrant TECHNIQUE: Contiguous axial scanning of the abdomen and pelvis following administration of 100 ml Iso yaneli 300 IV contrast. Delayed images through the kidneys and coronal/sagittal reconstructions perform ed. CT DLP: 1947.2 mGycm Automated exposure control for dose reduction was used. FINDINGS: LUNG BASES: No significant abnormality is appreciated. LIVER/GB: The liver is enlarged measuring 20.3 cm. No focal lesion seen. Portal venous system is kirby nt. No biliary ductal dilatation. Cholecystectomy clips. PANCREAS: No significant abnormality is seen. SPLEEN: No significant abnormality is seen. ADRENALS: No significant abnormality is seen. KIDNEYS: Tiny 9 mm hypodensity lateral mid left kidney, likely cyst. No excretion of contrast on the delayed kidney images. LYMPH NODES: No mesenteric or retroperitoneal lymphadenopathy. Scattered small mesenteric lymph nodes are demonstrated. REPRODUCTIVE ORGANS: Uterus surgically absent. Both ovaries are visualized. There is a 2.6 cm cyst in the right ovary and 3.0 cm cyst in the left ovary. No abnormal fluid collection in the pelvis or pel marvin lymphadenopathy. BOWEL: Postsurgical changes of sleeve gastrectomy. No dilated small bowel, free fluid, or free air. Normal appendix. Mild scattered stool. No pericolic inflammatory change. BONES: Moderate to advanced degenerative disc disease L5-S1 and facet arthropathy lower lumbar spine. IMPRESSION: 1. HEPATOMEGALY (20.3 CM). 2. NO EXCRETION OF CONTRAST ON THE DELAYED KIDNEY IMAGES. CORRELATE WITH RENAL FUNCTION TO EXCLUDE AK I. 3. STATUS POST HYSTERECTOMY. A 2.6 CM DOMINANT FOLLICLE OR FUNCTIONAL CYST IN THE RIGHT OVARY AND 3.0 CM WITHIN THE LEFT OVARY.
[2019-06-09 15:58] VITALS: BP 183/98; PULSE 86; RESP 16
== END 2019-06-09 15:58 | disposition home or self-care (01) ==
LOC: EC 13:05
DX: B34.9 Viral infection, unspecified (principal); Z98.84 Bariatric surgery status; Z90.49 Acquired absence of other specified parts of digestive tract; Z90.710 Acquired absence of both cervix and uterus; Z88.5 Allergy status to narcotic agent
CPT/HCPCS: 36415; 80053; 82150; 83690; 85025; 85610; 85730; 81003; 74177; 99284; 96374; 96375; 96361; J2405; J1885; Q9967

== ENCOUNTER 2019-12-17 10:06 | Emergency (ER) | payer BC ==
[2019-12-17 10:25] VITALS: RESP 18
[2019-12-17] MEDS ORDERED: SODIUM CHLORIDE 0.9% 1,000 ML IV STA (10:56)
[2019-12-17] MEDS ORDERED: ONDANSETRON 4 MG/2 ML VIAL IVP STA (10:56)
[2019-12-17] MEDS ORDERED: SODIUM CHLORIDE 0.9% 500 ML 500 ML IV STA (10:56)
[2019-12-17] MEDS ORDERED: KETOROLAC 15 MG/ML 1 ML VIAL IVP STA (10:56)
--- NOTE | 2019-12-17 11:01 | ED ---
Female Urogenital HPI - General Chief complaint: Urogenital Stated complaint: R side pain Time Seen by Provider: 12/17/19 10:27 Source: patient, RN notes reviewed Mode of arrival: ambulatory Limitations: no limitations - History of Present Illness Initial comments: This a 44-year-old female presents emergency Department chief complaint of right flank pain. Patient states she had some pain started on Saturday was seen by PCP on Saturday was prescribed ciprofloxacin for possible UTI based on urinalysis showing hematuria. Patient has no history kidney stone. Patient states the pain greatly worsened today along with a right flank pain. Patient has no dysuria denies any vomiting states that she is very nauseated. Patient states she's felt that she's had a fever, chills. Patient denies any chest pain or shortness of breath. Patient's had prior weight loss surgery, cholecystectomy - Related Data Home Medications Medication Instructions Recorded Confirmed Ciprofloxacin HCl 500 mg PO BID 12/17/19 12/17/19 Previous Rx's Medication Instructions Recorded Lisinopril-Hctz 20-12.5 mg 1 tab PO DAILY #90 tab 01/23/19 [Zestoretic 20-12.5] Allergies Allergy/AdvReac Type Severity Reaction Status Date / Time hydromorphone HCl AdvReac Abdominal Verified 12/17/19 10:53 [From Dilaudid] Pain Review of Systems ROS Statement: Those systems with pertinent positive or pertinent negative responses have been documented in the HPI. ROS Other: All systems not noted in ROS Statement are negative. Past Medical History Past Medical History: Hypertension, Osteoarthritis (OA), Supraventricular Tachycardia (SVT) Additional Past Medical History / Comment(s): MIGRAINES, History of Any Multi-Drug Resistant Organisms: None Reported Past Surgical History: Section, Cholecystectomy, Orthopedic Surgery Additional Past Surgical History / Comment(s): ARTHROPSCOPIC RIGHT KNEE, GASTRIC SLEEVE, ESSURE Past Anesthesia/Blood Transfusion Reactions: Previous Problems w/ Anesthesia Additional Past Anesthesia/Blood Transfusion Reaction / Comment(s): PROBLEMS WITH INTUBATION" Past Psychological History: No Psychological Hx Reported Smoking Status: Never smoker Past Alcohol Use History: Rare Past Drug Use History: None Reported - Past Family History Mother Family Medical History: Deep Vein Thrombosis (DVT) General Exam Limitations: no limitations General appearance: alert, in no apparent distress Head exam: Present: atraumatic, normocephalic, normal inspection Eye exam: Present: normal appearance, PERRL, EOMI. Absent: scleral icterus, conjunctival injection, periorbital swelling ENT exam: Present: normal exam, normal oropharynx, mucous membranes moist Neck exam: Present: normal inspection, full ROM. Absent: tenderness, meningismus, lymphadenopathy Respiratory exam: Present: normal lung sounds bilaterally. Absent: respiratory distress, wheezes, rales, rhonchi, stridor Cardiovascular Exam: Present: regular rate, normal rhythm, normal heart sounds. Absent: systolic murmur, diastolic murmur, rubs, gallop, clicks GI/Abdominal exam: Present: soft, tenderness (Mild right-sided), normal bowel sounds. Absent: distended, guarding, rebound, rigid Back exam: Present: CVA tenderness (R). Absent: CVA tenderness (L) Skin exam: Present: warm, dry, intact, normal color. Absent: rash Course Vital Signs 12/17/19 10:21 Temperature 98 F Pulse Rate 72 Respiratory 18 Rate Blood Pressure 156/92 O2 Sat by Pulse 100 Oximetry Medical Decision Making - Medical Decision Making Labs urinalysis and CT reviewed patient has symmetrical right kidney concern for infection versus recently passed stone. Patient still has pain patient does not have any signs of infection. She will be referred to urology. Patient offered further pain meds patient declines. - Lab Data Result diagrams: 12/17/19 11:04 12/17/19 11:04 Lab Results 12/17/19 12/17/19 12/17/19 Range/Units 11:04 11:04 11:04 WBC 8.4 (3.8-10.6) k/uL RBC 4.38 (3.80-5.40) m/uL Hgb 12.8 (11.4-16.0) gm/dL Hct 39.0 (34.0-46.0) % MCV 89.0 (80.0-100.0) fL MCH 29.3 (25.0-35.0) pg MCHC 32.9 (31.0-37.0) g/dL RDW 12.8 (11.5-15.5) % Plt Count 315 (150-450) k/uL Neutrophils % 72 % Lymphocytes % 21 % Monocytes % 5 % Eosinophils % 2 % Basophils % 0 % Neutrophils # 6.0 (1.3-7.7) k/uL Lymphocytes # 1.8 (1.0-4.8) k/uL Monocytes # 0.4 (0-1.0) k/uL Eosinophils # 0.2 (0-0.7) k/uL Basophils # 0.0 (0-0.2) k/uL Sodium 140 (137-145) mmol/L Potassium 4.1 (3.5-5.1) mmol/L Chloride 108 H (98-107) mmol/L Carbon Dioxide 26 (22-30) mmol/L Anion Gap 6 mmol/L BUN 11 (7-17) mg/dL Creatinine 0.83 (0.52-1.04) mg/dL Est GFR (CKD-EPI)AfAm >90 (>60 ml/min/1.73 sqM) Est GFR (CKD-EPI)NonAf 87 (>60 ml/min/1.73 sqM) Glucose 91 (74-99) mg/dL Calcium 8.9 (8.4-10.2) mg/dL Total Bilirubin 0.6 (0.2-1.3) mg/dL AST 17 (14-36) U/L ALT 10 (4-34) U/L Alkaline Phosphatase 63 (38-126) U/L Total Protein 6.8 (6.3-8.2) g/dL Albumin 3.9 (3.5-5.0) g/dL Lipase 156 (23-300) U/L Urine Color Yellow Urine Appearance Clear (Clear) Urine pH 6.5 (5.0-8.0) Ur Specific [place] 1.010 (1.001-1.035) Urine Protein Negative (Negative) Urine Glucose (UA) Negative (Negative) Urine Ketones Negative (Negative) Urine Blood Negative (Negative) Urine Nitrite Negative (Negative) Urine Bilirubin Negative (Negative) Urine Urobilinogen <2.0 (<2.0) mg/dL Ur Leukocyte Esterase Negative (Negative) Disposition Clinical Impression: Right flank pain Disposition: HOME SELF-CARE Condition: Stable Instructions (If sedation given, give patient instructions): Flank Pain (ED) Additional Instructions: Please return to the Emergency Department if symptoms worsen or any other concerns. Is patient prescribed a controlled substance at d/c from ED?: No Referrals: Caroline Presley MD [Primary Care Provider] - 1-2 days Nayan Joyce MD [STAFF PHYSICIAN] - 1-2 days Time of Disposition: 12:42
[2019-12-17 11:29] LABS: Basophils % (A) 0 %; Eosinophils # (A) 0.2 k/uL (0-0.7); Eosinophils % (A) 2 %; HGB 12.8 gm/dL (11.4-16.0); Lymphocytes # (A) 1.8 k/uL (1.0-4.8); Lymphocytes % (A) 21 %; MCH 29.3 pg (25.0-35.0); MCHC 32.9 g/dL (31.0-37.0); Mean Platelet Volume 7.7; Monocytes # (A) 0.4 k/uL (0-1.0); Monocytes % (A) 5 %; Neutrophils % (A) 72 %; Platelet Count 315 k/uL (150-450); RBC 4.38 m/uL (3.80-5.40); RDW 12.8 % (11.5-15.5); WBC 8.4 k/uL (3.8-10.6)
[2019-12-17 11:32] LABS: Appearance,Urine Clear (Clear); Bilirubin,Urine Negative (Negative); Blood,Urine Negative (Negative); Color,Urine Yellow; Glucose,Urine (UA) Negative (Negative); Ketones,Urine Negative (Negative); Leukocyte Esterase,Urine Negative (Negative); Nitrite,Urine Negative (Negative); PH, Urine 6.5 (5.0-8.0); Protein,Urine Negative (Negative); Urobilinogen,Urine <2.0 mg/dL (<2.0)
[2019-12-17 11:38] LABS: ALT 10 U/L (4-34); AST 17 U/L (14-36); African American GFR (CKD) >90 (>60 ml/min/1.73 sqM); Albumin 3.9 g/dL (3.5-5.0); Alkaline Phosphatase 63 U/L (38-126); Anion Gap 6 mmol/L; Blood Urea Nitrogen 11 mg/dL (7-17); Calcium 8.9 mg/dL (8.4-10.2); Carbon Dioxide 26 mmol/L (22-30); Chloride 108 mmol/L (98-107); Glucose 91 mg/dL (74-99); Non-African American GFR(CKD) 87 (>60 ml/min/1.73 sqM); Potassium 4.1 mmol/L (3.5-5.1); Sodium 140 mmol/L (137-145); Total Bilirubin 0.6 mg/dL (0.2-1.3); Total Protein 6.8 g/dL (6.3-8.2)
--- NOTE | 2019-12-17 12:19 | CT ---
EXAMINATION TYPE: CT abdomen pelvis wo con DATE OF EXAM: 12/17/2019 COMPARISON: 06/09/2019 HISTORY: Right sided flank pain with increased frequency of urination. CT DLP: 1195.4 mGycm Examination of the solid and hollow viscera is limited given the lack of contrast. FINDINGS: LUNG BASES: No evidence for nodule. No evidence for infiltrate. LIVER/GB: The gallbladder is surgically absent. No space-occupying hepatic lesion. PANCREAS: No pancreatic mass identified. No inflammatory process seen. SPLEEN: No evidence for splenomegaly. No intrasplenic lesions seen. ADRENALS: No adrenal nodules identified. No evidence for thickening. KIDNEYS: No evidence for renal mass. The right kidney is edematous. There is no definite evidence for hydronephrosis. The findings could reflect a recently passed calculus however underlying pyelonephri tis is not excluded and clinical correlation is advised. The left kidney appears unremarkable and tanya e of hydronephrosis or nephrolithiasis. BOWEL: Appendix has a normal appearance. No evidence of bowel obstruction. No inflammatory process. Lymph nodes: No evidence for adenopathy greater than 1 cm. Abdominal aorta: Atheromatous changes seen. No evidence for aneurysm. Genital organs: Right ovarian cystic lesion measures 2.5 cm. The uterus is surgically absent. No lef t adnexal mass seen. Other: No significant abnormality. IMPRESSION: The right kidney is edematous. There is no definite evidence for hydronephrosis. The findings could r eflect a recently passed calculus however underlying pyelonephritis is not excluded and clinical que elation is advised.
[2019-12-17] MEDS ORDERED: ACET/COD 300 MG/30 MG STARTER PACK 6 TAB BTL PO STA (12:41)
[2019-12-17 12:50] VITALS: BP 135/94; PULSE 65; TEMP 97.5
== END 2019-12-17 12:50 | disposition home or self-care (01) ==
LOC: EC 10:06
DX: R10.9 Unspecified abdominal pain (principal); R50.9 Fever, unspecified; R31.9 Hematuria, unspecified; R11.0 Nausea; Z88.8 Allergy status to other drugs, medicaments and biological substances; Z90.49 Acquired absence of other specified parts of digestive tract
CPT/HCPCS: 36415; 80053; 83690; 85025; 81003; 74176; 99284; 96374; 96375; 96361 ×2; J2405; J1885

== ENCOUNTER → 2020-02-24 | Outpatient (CLI) | payer BC | END | disposition home or self-care (01) | LOC: LABWHC1 14:53 | PROVIDERS: ATTEND Internal Medicine | DX: R07.89 Other chest pain (principal) | CPT/HCPCS: U0003; C9803 ==

== ENCOUNTER → 2021-04-04 | Outpatient (CLI) | payer BC | END | disposition home or self-care (01) | LOC: LABWHC1 13:21 | PROVIDERS: ATTEND Internal Medicine | DX: U07.1 COVID-19 (principal) | CPT/HCPCS: U0003; C9803 ==

== ENCOUNTER 2021-04-06 18:39 | Emergency (ER) | payer BC ==
[2021-04-06] MEDS ORDERED: SODIUM CHLORIDE 0.9% 1,000 ML IV ONE (19:57)
[2021-04-06] MEDS ORDERED: ACETAMINOPHEN TAB 500 MG TAB PO STA (19:57)
--- NOTE | 2021-04-06 20:10 | XR ---
EXAMINATION TYPE: XR chest 1V DATE OF EXAM: 04/06/2021 COMPARISON: 01/23/2019 HISTORY: Chest discomfort. Short of breath. Cough TECHNIQUE: Single view FINDINGS: There is relative poor inspiration. There is coarse interstitial density in the mid and low er lung echevarria. There is no pleural effusion. Heart size is normal. Mediastinum is normal. IMPRESSION: There is new interstitial infiltrates and subsegmental atelectasis in the lower lung fiel ds compared to old exam. Normal heart.
[2021-04-06 20:15] LABS: Basophils % (A) 0 %; Eosinophils % (A) 0 %; HCT 38.8 % (34.0-46.0); Lymphocytes # (A) 0.8 k/uL (1.0-4.8); Lymphocytes % (A) 12 %; MCH 29.8 pg (25.0-35.0); MCHC 33.4 g/dL (31.0-37.0); MCV 89.2 fL (80.0-100.0); Mean Platelet Volume 7.4; Monocytes # (A) 0.2 k/uL (0-1.0); Monocytes % (A) 3 %; Neutrophils # (A) 5.4 k/uL (1.3-7.7); Neutrophils % (A) 85 %; Platelet Count 260 k/uL (150-450); RBC 4.35 m/uL (3.80-5.40); WBC 6.3 k/uL (3.8-10.6)
[2021-04-06 20:29] LABS: INR 0.9 (<1.2); Partial Thromboplastin Time 26.7 sec (22.0-30.0); Prothrombin Time 9.8 sec (9.0-12.0)
[2021-04-06 20:32] LABS: ALT 30 U/L (4-34); AST 28 U/L (14-36); African American GFR (CKD) >90 (>60 ml/min/1.73 sqM); Albumin 4.1 g/dL (3.5-5.0); Alkaline Phosphatase 67 U/L (38-126); Anion Gap 11 mmol/L; Blood Urea Nitrogen 12 mg/dL (7-17); Calcium 9.2 mg/dL (8.4-10.2); Carbon Dioxide 26 mmol/L (22-30); Chloride 103 mmol/L (98-107); Glucose 149 mg/dL (74-99); LDH 452 U/L (313-618); Magnesium 1.6 mg/dL (1.6-2.3); Non-African American GFR(CKD) >90 (>60 ml/min/1.73 sqM); Potassium 3.9 mmol/L (3.5-5.1); Sodium 140 mmol/L (137-145); Total Bilirubin 0.2 mg/dL (0.2-1.3); Total Protein 7.5 g/dL (6.3-8.2)
--- NOTE | 2021-04-06 21:06 | ED ---
General Adult HPI - General Chief complaint: Shortness of Breath Stated complaint: covid+, SOB Source: patient Mode of arrival: ambulatory Limitations: physical limitation - History of Present Illness Initial comments: 45 year old female past history of SVT presents emergency department for shortness of breath and palpitations. Patient's was diagnosed with cold on Saturday. Came here for RapidTest. Onset of symptoms was last Saturday. Admits to feeling congested, short of breath with palpitations. Also has body aches and nausea. Has had poor oral intake. Denies fevers. Patient is not vaccinated. Denies concern for . No vomiting. Does have history of SVT. 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 Admits to a nonproductive cough. No chest pain. No other alleviating, precipitating modifying factors - Related Data Home Medications Medication Instructions Recorded Confirmed Ciprofloxacin HCl 500 mg PO BID 12/17/19 12/17/19 Previous Rx's Medication Instructions Recorded Lisinopril-Hctz 20-12.5 mg 1 tab PO DAILY #90 tab 01/23/19 [Zestoretic 20-12.5] Benzonatate [Tessalon Perles] 100 mg PO TID PRN #20 capsule 04/06/21 Codeine Phosphate/Guaifenesin 5 ml PO Q6H PRN 3 Days #60 ml 04/06/21 [Guaifen-Codeine 100-10 mg/5 ml] Allergies Allergy/AdvReac Type Severity Reaction Status Date / Time hydromorphone HCl AdvReac Abdominal Verified 04/06/21 18:43 [From Dilaudid] Pain Review of Systems ROS Statement: Those systems with pertinent positive or pertinent negative responses have been documented in the HPI. ROS Other: All systems not noted in ROS Statement are negative. Past Medical History Past Medical History: Hypertension, Osteoarthritis (OA), Supraventricular Tachycardia (SVT) Additional Past Medical History / Comment(s): MIGRAINES, History of Any Multi-Drug Resistant Organisms: None Reported Past Surgical History: Section, Cholecystectomy, Orthopedic Surgery Additional Past Surgical History / Comment(s): ARTHROPSCOPIC RIGHT KNEE, GASTRIC SLEEVE, ESSURE Past Anesthesia/Blood Transfusion Reactions: Previous Problems w/ Anesthesia Additional Past Anesthesia/Blood Transfusion Reaction / Comment(s): PROBLEMS WITH INTUBATION" Past Psychological History: No Psychological Hx Reported Smoking Status: Never smoker Past Alcohol Use History: Rare Past Drug Use History: None Reported - Past Family History Mother Family Medical History: Deep Vein Thrombosis (DVT) General Exam Limitations: physical limitation Course Vital Signs 04/06/21 04/06/21 04/06/21 18:40 19:35 19:36 Temperature 99 F Pulse Rate 109 H 98 Respiratory 22 20 26 H Rate Blood Pressure 172/104 139/94 O2 Sat by Pulse 99 97 Oximetry 04/06/21 04/06/21 21:38 22:26 Temperature Pulse Rate 85 86 Respiratory 20 20 Rate Blood Pressure 126/90 122/84 O2 Sat by Pulse 99 99 Oximetry EKG Findings - EKG Comments: EKG Findings:: EKG demonstrates a sinus rhythm with a ventricular rate of 76. MS interval 140. QRS 94. QTC of 402. No acute ST segment elevations or depressions concerning for ischemic changes Medical Decision Making - Medical Decision Making Upon arrival patient was placed into room 16. There are history and physical exam was performed. Upon arrival patient does have a mild tachycardia. IV is established. She was given a liter bolus of normal saline and some Tylenol. Laboratory studies are conducted. D-dimer negative. Chest x-ray does demonstrate a bibasilar pneumonia. Oxygen saturation have been 98%. Patient resting comfortably in the exam room. Heart rate has improved to 85. Patient does meet criteria for antibody infusion due to her BMI. After infusion patient is discharged home. Instructed to buy a pulse ox and check her oxygenation at home. Recommended that she stop using the steroids and azithromycin at home. She does have an inhaler. Tessalon Perles and codeine cough syrup called into pharmacy. She is asked to return for any new or worsening symptoms. Patient discharged home in stable condition - Lab Data Result diagrams: 04/06/21 Unknown 04/06/21 Unknown Lab Results 04/06/21 04/06/21 04/06/21 Range/Units Unknown Unknown Unknown WBC 6.3 (3.8-10.6) k/uL RBC 4.35 (3.80-5.40) m/uL Hgb 13.0 (11.4-16.0) gm/dL Hct 38.8 (34.0-46.0) % MCV 89.2 (80.0-100.0) fL MCH 29.8 (25.0-35.0) pg MCHC 33.4 (31.0-37.0) g/dL RDW 13.0 (11.5-15.5) % Plt Count 260 (150-450) k/uL MPV 7.4 Neutrophils % 85 % Lymphocytes % 12 % Monocytes % 3 % Eosinophils % 0 % Basophils % 0 % Neutrophils # 5.4 (1.3-7.7) k/uL Lymphocytes # 0.8 L (1.0-4.8) k/uL Monocytes # 0.2 (0-1.0) k/uL Eosinophils # 0.0 (0-0.7) k/uL Basophils # 0.0 (0-0.2) k/uL PT 9.8 (9.0-12.0) sec INR 0.9 (<1.2) APTT 26.7 (22.0-30.0) sec D-Dimer 0.21 (<0.60) mg/L FEU Sodium 140 (137-145) mmol/L Potassium 3.9 (3.5-5.1) mmol/L Chloride 103 (98-107) mmol/L Carbon Dioxide 26 (22-30) mmol/L Anion Gap 11 mmol/L BUN 12 (7-17) mg/dL Creatinine 0.63 (0.52-1.04) mg/dL Est GFR (CKD-EPI)AfAm >90 (>60 ml/min/1.73 sqM) Est GFR (CKD-EPI)NonAf >90 (>60 ml/min/1.73 sqM) Glucose 149 H (74-99) mg/dL Plasma Lactic Acid Benito (0.7-2.0) mmol/L Calcium 9.2 (8.4-10.2) mg/dL Magnesium 1.6 (1.6-2.3) mg/dL Total Bilirubin 0.2 (0.2-1.3) mg/dL AST 28 (14-36) U/L ALT 30 (4-34) U/L Alkaline Phosphatase 67 (38-126) U/L Lactate Dehydrogenase 452 (313-618) U/L Total Protein 7.5 (6.3-8.2) g/dL Albumin 4.1 (3.5-5.0) g/dL 04/06/21 Range/Units Unknown WBC (3.8-10.6) k/uL RBC (3.80-5.40) m/uL Hgb (11.4-16.0) gm/dL Hct (34.0-46.0) % MCV (80.0-100.0) fL MCH (25.0-35.0) pg MCHC (31.0-37.0) g/dL RDW (11.5-15.5) % Plt Count (150-450) k/uL MPV Neutrophils % % Lymphocytes % % Monocytes % % Eosinophils % % Basophils % % Neutrophils # (1.3-7.7) k/uL Lymphocytes # (1.0-4.8) k/uL Monocytes # (0-1.0) k/uL Eosinophils # (0-0.7) k/uL Basophils # (0-0.2) k/uL PT (9.0-12.0) sec INR (<1.2) APTT (22.0-30.0) sec D-Dimer (<0.60) mg/L FEU Sodium (137-145) mmol/L Potassium (3.5-5.1) mmol/L Chloride (98-107) mmol/L Carbon Dioxide (22-30) mmol/L Anion Gap mmol/L BUN (7-17) mg/dL Creatinine (0.52-1.04) mg/dL Est GFR (CKD-EPI)AfAm (>60 ml/min/1.73 sqM) Est GFR (CKD-EPI)NonAf (>60 ml/min/1.73 sqM) Glucose (74-99) mg/dL Plasma Lactic Acid Benito 1.4 (0.7-2.0) mmol/L Calcium (8.4-10.2) mg/dL Magnesium (1.6-2.3) mg/dL Total Bilirubin (0.2-1.3) mg/dL AST (14-36) U/L ALT (4-34) U/L Alkaline Phosphatase (38-126) U/L Lactate Dehydrogenase (313-618) U/L Total Protein (6.3-8.2) g/dL Albumin (3.5-5.0) g/dL Disposition Clinical Impression: COVID-19, Palpitations Disposition: HOME SELF-CARE Condition: Stable Instructions (If sedation given, give patient instructions): Coronavirus Disease 2019 (COVID-19) Additional Instructions: Please return for any new or worsening symptoms. I recommend you buy a pulse ox and check it frequently. Return for any oxygenation less than 90%. Prescriptions: Codeine Phosphate/Guaifenesin [Guaifen-Codeine 100-10 mg/5 ml] 5 ml PO Q6H PRN 3 Days #60 ml PRN Reason: Cough Benzonatate [Tessalon Perles] 100 mg PO TID PRN #20 capsule PRN Reason: Cough Is patient prescribed a controlled substance at d/c from ED?: Yes When asked, does pt state using other controlled substances?: No If prescribed controlled substance>3 days was MAPS reviewed?: Prescribed <3 Days If opioid is for acute pain is fill amount 7 days or less?: Yes If Rx opioid, was Start Talking consent form obtained?: Yes Referrals: Caroline Presley MD [Primary Care Provider] - 1-2 days Time of Disposition: 22:12
[2021-04-06 21:39] VITALS: RESP 20
[2021-04-06] MEDS ORDERED: SODIUM CHLORIDE 0.9% 50 ML IVPB ONE (22:00)
[2021-04-06] MEDS ORDERED: BAMLANIVIMAB (EUA) 700 MG, ETESEVIMAB (EUA) 1,400 MG in SODIUM CHLORIDE 0.9% 100 ML IVPB ONE (22:30)
[2021-04-06 23:59] VITALS: BP 124/88; PULSE 59; TEMP 97.8
== END 2021-04-06 23:56 | disposition home or self-care (01) ==
LOC: EC 18:39
DX: U07.1 COVID-19 (principal); R00.2 Palpitations; I10 Essential (primary) hypertension; M19.90 Unspecified osteoarthritis, unspecified site; G43.909 Migraine, unspecified, not intractable, without status migrainosus; Z79.899 Other long term (current) drug therapy
CPT/HCPCS: 36415; 93005; 85379; 80053; 83605; 83615; 83735; 85025; 85610; 85730; 71045; 99285; 96360; J3490

== ENCOUNTER 2021-07-24 11:49 | Emergency (ER) | payer BC ==
[2021-07-24 12:12] VITALS: PULSE 78
[2021-07-24 13:08] LABS: Appearance,Urine Cloudy (Clear); Bilirubin,Urine Negative (Negative); Blood,Urine Negative (Negative); Color,Urine Yellow; Glucose,Urine (UA) Negative (Negative); Ketones,Urine Negative (Negative); Leukocyte Esterase,Urine Negative (Negative); Mucus,Urine Few /hpf; Nitrite,Urine Negative (Negative); PH, Urine 6.5 (5.0-8.0); Protein,Urine Trace (Negative); Specific Gravity,Urine 1.033 (1.001-1.035); Squamous Epithelial Cell,Urine 5 /hpf (0-4); WBC,Urine 2 /hpf (0-5)
[2021-07-24] MEDS ORDERED: SODIUM CHLORIDE 0.9% 1,000 ML IV STA (13:10)
[2021-07-24 13:41] LABS: Basophils % (A) 0 %; Eosinophils # (A) 0.2 k/uL (0-0.7); Eosinophils % (A) 3 %; HCT 38.1 % (34.0-46.0); HGB 12.6 gm/dL (11.4-16.0); Lymphocytes # (A) 3.1 k/uL (1.0-4.8); Lymphocytes % (A) 45 %; MCH 30.2 pg (25.0-35.0); MCHC 33.2 g/dL (31.0-37.0); Mean Platelet Volume 7.3; Monocytes # (A) 0.3 k/uL (0-1.0); Monocytes % (A) 5 %; Neutrophils # (A) 3.1 k/uL (1.3-7.7); Neutrophils % (A) 45 %; Platelet Count 368 k/uL (150-450); RBC 4.18 m/uL (3.80-5.40); RDW 13.4 % (11.5-15.5); WBC 6.9 k/uL (3.8-10.6)
--- NOTE | 2021-07-24 13:54 | ED ---
Abdominal Pain HPI - General Chief Complaint: Abdominal Pain Stated Complaint: Flank pain/abd pain Time Seen by Provider: 07/24/21 12:16 Source: patient, RN notes reviewed Mode of arrival: ambulatory Limitations: no limitations - History of Present Illness Initial Comments: This a 45-year-old female presents emergency from chief complaint of right-sided abdominal pain. Patient states has present for 3 days. She's noticed some urinary frequency without dysuria no hematuria she has had a prior cholecystectomy. Denies any increasing vomiting diarrhea constipation associated nausea no increase in reflux. Patient states nothing really makes pain for better or worse at this time. She denies chance . No chest pain or shortness breath - Related Data Home Medications Medication Instructions Recorded Confirmed Ciprofloxacin HCl 500 mg PO BID 12/17/19 12/17/19 Previous Rx's Medication Instructions Recorded Lisinopril-Hctz 20-12.5 mg 1 tab PO DAILY #90 tab 01/23/19 [Zestoretic 20-12.5] Benzonatate [Tessalon Perles] 100 mg PO TID PRN #20 capsule 04/06/21 Codeine Phosphate/Guaifenesin 5 ml PO Q6H PRN 3 Days #60 ml 04/06/21 [Guaifen-Codeine 100-10 mg/5 ml] Omeprazole [PriLOSEC] 40 mg PO DAILY #14 cap 07/24/21 Allergies Allergy/AdvReac Type Severity Reaction Status Date / Time hydromorphone HCl AdvReac Abdominal Verified 07/24/21 12:12 [From Dilaudid] Pain Review of Systems ROS Statement: Those systems with pertinent positive or pertinent negative responses have been documented in the HPI. ROS Other: All systems not noted in ROS Statement are negative. Past Medical History Past Medical History: Hypertension, Osteoarthritis (OA), Supraventricular Tachycardia (SVT) Additional Past Medical History / Comment(s): MIGRAINES, History of Any Multi-Drug Resistant Organisms: None Reported Past Surgical History: Section, Cholecystectomy, Orthopedic Surgery Additional Past Surgical History / Comment(s): ARTHROPSCOPIC RIGHT KNEE, GASTRIC SLEEVE, ESSURE Past Anesthesia/Blood Transfusion Reactions: Previous Problems w/ Anesthesia Additional Past Anesthesia/Blood Transfusion Reaction / Comment(s): PROBLEMS WITH INTUBATION" Past Psychological History: No Psychological Hx Reported Smoking Status: Never smoker Past Alcohol Use History: Rare Past Drug Use History: None Reported - Past Family History Mother Family Medical History: Deep Vein Thrombosis (DVT) General Exam Limitations: no limitations General appearance: alert, in no apparent distress Head exam: Present: atraumatic, normocephalic, normal inspection Eye exam: Present: normal appearance, PERRL, EOMI. Absent: scleral icterus, conjunctival injection, periorbital swelling ENT exam: Present: normal exam, normal oropharynx, mucous membranes moist Neck exam: Present: normal inspection, full ROM. Absent: tenderness, meningismus, lymphadenopathy Respiratory exam: Present: normal lung sounds bilaterally. Absent: respiratory distress, wheezes, rales, rhonchi, stridor Cardiovascular Exam: Present: regular rate, normal rhythm, normal heart sounds. Absent: systolic murmur, diastolic murmur, rubs, gallop, clicks GI/Abdominal exam: Present: soft, tenderness, normal bowel sounds. Absent: distended, guarding, rebound, rigid Back exam: Present: CVA tenderness (R). Absent: CVA tenderness (L) Neurological exam: Present: alert Skin exam: Present: warm, dry, intact, normal color. Absent: rash Course Vital Signs 07/24/21 12:10 Temperature 97.6 F Pulse Rate 78 Respiratory 20 Rate Blood Pressure 151/107 O2 Sat by Pulse 100 Oximetry Medical Decision Making - Medical Decision Making This a 45-year-old female presents with ocular right flank pain. Patient states that this been going on for last couple days. Patient did have some urinary frequency which was negative for evidence of infection patient did have for complete last CT after which was negative. This may be muscle skeletal pain she doesn't some mild reflux was started on Lasix for gastritis return parameters discussed. - Lab Data Result diagrams: 07/24/21 13:28 07/24/21 13:28 Lab Results 07/24/21 07/24/21 07/24/21 Range/Units 12:42 12:42 13:28 WBC 6.9 (3.8-10.6) k/uL RBC 4.18 (3.80-5.40) m/uL Hgb 12.6 (11.4-16.0) gm/dL Hct 38.1 (34.0-46.0) % MCV 91.0 (80.0-100.0) fL MCH 30.2 (25.0-35.0) pg MCHC 33.2 (31.0-37.0) g/dL RDW 13.4 (11.5-15.5) % Plt Count 368 (150-450) k/uL MPV 7.3 Neutrophils % 45 % Lymphocytes % 45 % Monocytes % 5 % Eosinophils % 3 % Basophils % 0 % Neutrophils # 3.1 (1.3-7.7) k/uL Lymphocytes # 3.1 (1.0-4.8) k/uL Monocytes # 0.3 (0-1.0) k/uL Eosinophils # 0.2 (0-0.7) k/uL Basophils # 0.0 (0-0.2) k/uL Sodium (137-145) mmol/L Potassium (3.5-5.1) mmol/L Chloride (98-107) mmol/L Carbon Dioxide (22-30) mmol/L Anion Gap mmol/L BUN (7-17) mg/dL Creatinine (0.52-1.04) mg/dL Est GFR (CKD-EPI)AfAm (>60 ml/min/1.73 sqM) Est GFR (CKD-EPI)NonAf (>60 ml/min/1.73 sqM) Glucose (74-99) mg/dL Calcium (8.4-10.2) mg/dL Total Bilirubin (0.2-1.3) mg/dL AST (14-36) U/L ALT (4-34) U/L Alkaline Phosphatase (38-126) U/L Total Protein (6.3-8.2) g/dL Albumin (3.5-5.0) g/dL Lipase (23-300) U/L Urine Color Yellow Urine Appearance Cloudy H (Clear) Urine pH 6.5 (5.0-8.0) Ur Specific [place] 1.033 (1.001-1.035) Urine Protein Trace H (Negative) Urine Glucose (UA) Negative (Negative) Urine Ketones Negative (Negative) Urine Blood Negative (Negative) Urine Nitrite Negative (Negative) Urine Bilirubin Negative (Negative) Urine Urobilinogen 3.0 (<2.0) mg/dL Ur Leukocyte Esterase Negative (Negative) Urine WBC 2 (0-5) /hpf Ur Squamous Epith Cells 5 H (0-4) /hpf Urine Mucus Few H (None) /hpf Urine HCG, Qual Not Detected (Not Detectd) 07/24/21 Range/Units 13:28 WBC (3.8-10.6) k/uL RBC (3.80-5.40) m/uL Hgb (11.4-16.0) gm/dL Hct (34.0-46.0) % MCV (80.0-100.0) fL MCH (25.0-35.0) pg MCHC (31.0-37.0) g/dL RDW (11.5-15.5) % Plt Count (150-450) k/uL MPV Neutrophils % % Lymphocytes % % Monocytes % % Eosinophils % % Basophils % % Neutrophils # (1.3-7.7) k/uL Lymphocytes # (1.0-4.8) k/uL Monocytes # (0-1.0) k/uL Eosinophils # (0-0.7) k/uL Basophils # (0-0.2) k/uL Sodium 141 (137-145) mmol/L Potassium 4.1 (3.5-5.1) mmol/L Chloride 107 (98-107) mmol/L Carbon Dioxide 28 (22-30) mmol/L Anion Gap 6 mmol/L BUN 13 (7-17) mg/dL Creatinine 0.62 (0.52-1.04) mg/dL Est GFR (CKD-EPI)AfAm >90 (>60 ml/min/1.73 sqM) Est GFR (CKD-EPI)NonAf >90 (>60 ml/min/1.73 sqM) Glucose 91 (74-99) mg/dL Calcium 8.8 (8.4-10.2) mg/dL Total Bilirubin 0.3 (0.2-1.3) mg/dL AST 18 (14-36) U/L ALT 11 (4-34) U/L Alkaline Phosphatase 73 (38-126) U/L Total Protein 7.4 (6.3-8.2) g/dL Albumin 3.8 (3.5-5.0) g/dL Lipase 133 (23-300) U/L Urine Color Urine Appearance (Clear) Urine pH (5.0-8.0) Ur Specific [place] (1.001-1.035) Urine Protein (Negative) Urine Glucose (UA) (Negative) Urine Ketones (Negative) Urine Blood (Negative) Urine Nitrite (Negative) Urine Bilirubin (Negative) Urine Urobilinogen (<2.0) mg/dL Ur Leukocyte Esterase (Negative) Urine WBC (0-5) /hpf Ur Squamous Epith Cells (0-4) /hpf Urine Mucus (None) /hpf Urine HCG, Qual (Not Detectd) Disposition Clinical Impression: Right flank pain, Abdominal pain Disposition: HOME SELF-CARE Condition: Stable Instructions (If sedation given, give patient instructions): Abdominal Pain (ED) Additional Instructions: Please return to the Emergency Department if symptoms worsen or any other concer ns. Prescriptions: Omeprazole [PriLOSEC] 40 mg PO DAILY #14 cap Is patient prescribed a controlled substance at d/c from ED?: No Referrals: Caroline Presley MD [Primary Care Provider] - 1-2 days Time of Disposition: 14:32
[2021-07-24 13:56] LABS: ALT 11 U/L (4-34); AST 18 U/L (14-36); African American GFR (CKD) >90 (>60 ml/min/1.73 sqM); Albumin 3.8 g/dL (3.5-5.0); Alkaline Phosphatase 73 U/L (38-126); Anion Gap 6 mmol/L; Blood Urea Nitrogen 13 mg/dL (7-17); Calcium 8.8 mg/dL (8.4-10.2); Carbon Dioxide 28 mmol/L (22-30); Chloride 107 mmol/L (98-107); Glucose 91 mg/dL (74-99); Lipase 133 U/L (23-300); Non-African American GFR(CKD) >90 (>60 ml/min/1.73 sqM); Potassium 4.1 mmol/L (3.5-5.1); Sodium 141 mmol/L (137-145); Total Bilirubin 0.3 mg/dL (0.2-1.3); Total Protein 7.4 g/dL (6.3-8.2)
--- NOTE | 2021-07-24 14:24 | CT ---
EXAMINATION TYPE: CT abdomen pelvis w con DATE OF EXAM: 07/24/2021 COMPARISON: CT dated 12/17/2019 HISTORY: Right sided flank pain/abdominal pain CT DLP: 2919 mGycm Automated exposure control for dose reduction was used. TECHNIQUE: Helical acquisition of images was performed from the lung bases through the pelvis. CONTRAST: Performed without Oral Contrast and with IV Contrast, patient injected with 100 mL of Isovue 300. FINDINGS: Suboptimal CT scan with motion artifacts. LUNG BASES: No significant abnormality is appreciated. LIVER/GB: Previous cholecystectomy. No definite hepatic focal lesion. PANCREAS: No significant abnormality is seen. SPLEEN: No significant abnormality is seen. ADRENALS: No significant abnormality is seen. KIDNEYS: Tiny left renal cyst, otherwise unremarkable kidneys. No hydroureter or hydronephrosis. Kim sly unremarkable urinary bladder. FREE AIR: No free air is visualized. RETROPERITONEAL ADENOPATHY: None visualized REPRODUCTIVE ORGANS: Previous hysterectomy. No gross adnexal mass. PELVIC ADENOPATHY: None visualized. OSSEOUS STRUCTURES: Degenerative changes at L5-S1 level. BOWEL: Previous gastric surgery, otherwise unremarkable remainder of the stomach, duodenum and small bowel. Moderate fecal loading of the colon. Normal appendix. OTHER: No sizable ascites. IMPRESSION: With the limitation of the motion artifacts, no definite acute abnormality seen in the abdomen or the pelvis. Incidental findings as described above.
[2021-07-24 15:11] VITALS: BP 173/106; RESP 18; TEMP 97.8
== END 2021-07-24 15:08 | disposition home or self-care (01) ==
LOC: EC 11:49
DX: R10.9 Unspecified abdominal pain (principal); I10 Essential (primary) hypertension; Z88.5 Allergy status to narcotic agent
CPT/HCPCS: 36415; 80053; 83690; 85025; 81001; 81025; 74177; 99284; 96360; Q9967

== ENCOUNTER → 2023-02-06 | Outpatient (CLI) | payer BC ==
--- NOTE | 2023-02-06 20:38 | MR ---
MRI CERVICAL SPINE: CLINICAL HISTORY: Neck pain, Bilat fingers numbness and tingling, headaches for 6 months. TECHNIQUE: Multiplanar, multisequence imaging of the cervical spine is performed without IV contrast. COMPARISON: MRI cervical spine March 14, 2019. FINDINGS: Sagittal images of the cervical spine show the craniocervical junction to remain within nor mal limits. Prominent CSF posterior aspect posterior fossa is redemonstrated. Probable angeli cisterna magna. The cervical and upper thoracic spinal cord remains normal in caliber and signal. Vertebral alignment is stable and straightened. The vertebral body heights are normal. Mild disc space narrowin g at C6-C7 level is redemonstrated. Some heterogeneous Modic type II endplate changes anterior inferi or C5 level are redemonstrated. Axial images show the C2-C3 level to remain within normal limits. Axial images at C3-C4 level show new central disc protrusion effacing anterior thecal sac on axial im age 40, bilateral neural foramina remain patent. Axial images at C4-C5 level remain within normal limits. Axial images at C5-C6 level show persistent central disc protrusion on background of broad disc protr usion effacing anterior thecal sac up to ventral surface of spinal cord axial image 23, bilateral kenneth ral foramina are patent. Axial images at C6-C7 level shows more prominent broad-based posterior disc protrusion effacing the a nterior thecal sac up to ventral surface of spinal cord and causing moderate right and mild left-side d neural foraminal narrowing. Axial images at C7-T1 level are within normal limits. IMPRESSION: Straightening of cervical spine with multilevel degenerative changes redemonstrated. Incr easing degenerative change at C6-C7 level noted from prior MRI.
== END | disposition home or self-care (01) ==
LOC: RADMRIMAIN 19:05
PROVIDERS: ATTEND Family Medicine
DX: M50.122 Cervical disc disorder at C5-C6 level with radiculopathy (principal); M50.123 Cervical disc disorder at C6-C7 level with radiculopathy; M47.22 Other spondylosis with radiculopathy, cervical region
CPT/HCPCS: 72141

== ENCOUNTER 2023-12-09 09:36 | Observation (INO) | payer BC ==
[2023-12-09] MEDS: MORPHINE SULFATE 4 MG/ML SYRINGE IM STA (09:59)
--- NOTE | 2023-12-09 10:03 | ED ---
General Adult HPI - General Chief complaint: Back Pain/Injury Stated complaint: back pain Time Seen by Provider: 12/09/23 09:40 Source: patient Mode of arrival: ambulatory Limitations: no limitations - History of Present Illness Initial comments: Dictation was produced using [employer] dictation software. please excuse any grammatical, word or spelling errors. Chief Complaint: 48-year-old female back pain History of Present Illness: Patient is a 48-year-old female 2-1/2 weeks of back pain. Patient has been having ongoing back pain has been trying to be managed by her primary care doctor. Patient states that she leaned over 2-1/2 weeks ago when all of a sudden she had tightness in her back. States that it is in her lower back radiates down her posterior left leg causing tingling in her left toes. Denies any bowel or bladder issues. States that she does have pain with Valsalva. Patient has known history of degenerative spinal disease in her lumbar spine and cervical spine. She has seen her primary care doctor twice regarding this with some relief. She also with her chiropractor. This morning she woke up and felt like her pain was too severe prompting her to come to the ER. Denies any fever, chills or night sweats. Patient's position of comfort is sitting. The ROS documented in this emergency department record has been reviewed and confirmed by me. Those systems with pertinent positive or negative responses have been documented in the HPI. All other systems are other negative and/or noncontributory. - Related Data Home Medications Medication Instructions Recorded Confirmed Ciprofloxacin HCl 500 mg PO BID 12/17/19 12/17/19 Previous Rx's Medication Instructions Recorded Lisinopril-Hctz 20-12.5 mg 1 tab PO DAILY #90 tab 01/23/19 [Zestoretic 20-12.5] Benzonatate [Tessalon Perles] 100 mg PO TID PRN #20 capsule 04/06/21 Codeine Phosphate/Guaifenesin 5 ml PO Q6H PRN 3 Days #60 ml 04/06/21 [Guaifen-Codeine 100-10 mg/5 ml] Omeprazole [PriLOSEC] 40 mg PO DAILY #14 cap 07/24/21 Allergies Allergy/AdvReac Type Severity Reaction Status Date / Time hydromorphone HCl AdvReac Abdominal Verified 07/24/21 12:12 [From Dilaudid] Pain Review of Systems ROS Statement: Those systems with pertinent positive or pertinent negative responses have been documented in the HPI. ROS Other: All systems not noted in ROS Statement are negative. Past Medical History Past Medical History: Hypertension, Osteoarthritis (OA), Supraventricular Tachycardia (SVT) Additional Past Medical History / Comment(s): MIGRAINES, History of Any Multi-Drug Resistant Organisms: None Reported Past Surgical History: Section, Cholecystectomy, Orthopedic Surgery Additional Past Surgical History / Comment(s): ARTHROPSCOPIC RIGHT KNEE, GASTRIC SLEEVE, ESSURE Past Anesthesia/Blood Transfusion Reactions: Previous Problems w/ Anesthesia Additional Past Anesthesia/Blood Transfusion Reaction / Comment(s): PROBLEMS WITH INTUBATION" Past Psychological History: No Psychological Hx Reported Smoking Status: Never smoker Past Alcohol Use History: Rare Past Drug Use History: None Reported - Past Family History Mother Family Medical History: Deep Vein Thrombosis (DVT) General Exam - General Exam Comments Initial Comments: PHYSICAL EXAM: General Impression: Alert and oriented x3, not in acute distress HEENT: Normocephalic atraumatic, extra-ocular movements intact, pupils equal and reactive to light bilaterally, mucous membranes moist. Cardiovascular: Heart regular rate and rhythm Chest: Able to complete full sentences, no retractions, no tachypnea Abdomen: abdomen soft, non-tender, non-distended, no organomegaly Musculoskeletal: Pulses present and equal in all extremities, no peripheral edema Motor: no focal deficits noted Neurological: CN II-XII grossly intact, no focal motor or sensory deficits noted Skin: Intact with no visualized rashes Psych: Normal affect and mood Limitations: no limitations Course Vital Signs 12/09/23 12/09/23 09:39 10:42 Temperature 98 F 98.1 F Pulse Rate 76 68 Respiratory 16 18 Rate Blood Pressure 212/114 159/91 O2 Sat by Pulse 99 97 Oximetry Medical Decision Making - Medical Decision Making Was pt. sent in by a medical professional or institution (, PA, [facility], urgent care, hospital, or halfway...) When possible be specific @ -No Did you speak to anyone other than the patient for history (EMS, parent, family, police, friend...)? What history was obtained from this source @ -No Did you review nursing and triage notes (agree or disagree)? Why? @ -I reviewed and agree with nursing and triage notes Were old charts reviewed (outside hosp., previous admission, EMS record, old EKG, old radiological studies, urgent care reports/EKG's, halfway records)? Report findings @ -No old charts were reviewed Differential Diagnosis (chest pain, altered mental status, abdominal pain women, abdominal pain men, vaginal bleeding, musculoskeletal, weakness, fever, dyspnea, syncope, headache, dizziness, GI bleed, back pain, seizure, CVA, palpatations, mental health)? @ -Differential Back Pain: Strain, zoster, cauda equina syndrome, epidural abscess, vertebral osteomyelitis, discitis, fracture, subluxation, disc herniation, DJD, spinal stenosis, dissection, AAA, pancreatitis, peptic ulcer disease, pyelonephritis, kidney stone, this is not meant to be an all-inclusive list. EKG interpreted by me (3pts min.). @ -None done X-rays interpreted by me (1pt min.). @ -None done CT interpreted by me (1pt min.). @ -CT of the lumbar spine shows severe degenerative changes U/S interpreted by me (1pt. min.). @ -None done What testing was considered but not performed or refused? (CT, X-rays, U/S, labs)? Why? @ -None What meds were considered but not given or refused? Why? @ -None Was smoking cessation discussed for >3mins.? @ -No Were there social determinants of health that impacted care today? How? (Homelessness, low income, unemployed, alcoholism, drug addiction, transportation, low edu. Level, literacy, decrease access to med. care, [place] [facility], rehab)? @ -No Was there de-escalation of care discussed even if they declined (Discuss DNR or withdrawal of care, Hospice)? DNR status @ -No What co-morbidities impacted this encounter? (DM, HTN, Smoking, COPD, CAD, Cancer, CVA, ARF, Chemo, Hep., AIDS, mental health diagnosis, sleep apnea, morbid obesity)? @ -None Was patient admitted / discharged? Hospital course, mention meds given and route, prescriptions, significant lab abnormalities, going to OR and other pertinent info. @ -48-year-old female with acute on chronic back pain. She has no red flag symptoms however is having significant neurologic symptoms. No concern for cauda equina. Vital signs are stable. CT shows severe degenerative changes. Disposition options were discussed with patient she is agreeable for observation admission with spine surgery consultation. Did you discuss the management of the patient with other professionals (professionals i.e. , PA, [facility], lab, RT, psych nurse, social media marketer, enterprise software developer, teacher, geological technical officer, home health care case manager)? Give summary @ -Case discussed with hospitalist for admission Was critical care preformed (if so, how long)? @ -No Undiagnosed new problem with uncertain prognosis? @ -No Drug Therapy requiring intensive monitoring for toxicity (Heparin, Nitro, Insulin, Cardizem)? @ -No Were any procedures done? @ -No Diagnosis/symptom? Acute, or Chronic, or Acute on Chronic? Uncomplicated (without systemic symptoms) or Complicated (systemic symptoms)? @ -Back pain Side effects of treatment? @ -No Exacerbation, Progression, or Severe Exacerbation? @ -No Poses a threat to life or bodily function? How? (Chest pain, [place], [place], pneumonia, PE, COPD, DKA, ARF, appy, cholecystitis, CVA, Diverticulitis, Homicidal, Suicidal, threat to staff... and all critical care pts) @ -yes Disposition Clinical Impression: Back pain Disposition: ADMITTED IP TO THIS HOSP Condition: Fair Referrals: Adonay Sam DO [Primary Care Provider] - 1-2 days Decision Time: 11:40
--- NOTE | 2023-12-09 10:52 | CT ---
EXAMINATION TYPE: CT lumbar spine wo con DATE OF EXAM: 12/09/2023 10:38 AM COMPARISON: None HISTORY: Worsening back pain, denies injury CT DLP: 2109.6 mGycm Automated exposure control for dose reduction was used. Unenhanced CT of the lumbar spine was performed. Bone and soft tissue window settings are submitted as well as coronal and sagittal reconstructions. 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 Aorta of normal caliber. There is hypertr ophic arthropathy of the SI joint. Soft tissue prominence in the right adnexa only partially included in the [id number] of uncertain etiology. Consider pelvic ultrasound. Loss of the normal lumbar lo rdosis. Hypertrophic SI joint arthropathy with sclerosis can be associated with osteoarthritis or sac roiliitis. Assess subcutaneous edema posteriorly in the soft tissues is nonspecific. L1-L2: Normal disc space height. No disc herniation protrusion or central stenosis. No facet joint arthropathy. No evidence for foraminal encroachment. L2-L3: Left paracentral and lateral disc bulging or protrusion with mild left foraminal encroachment. L3-L4: Left paracentral and lateral disc bulging or protrusion with mild left foraminal encroachment. L4-L5: A broad-based disc protrusion mild effacement of thecal sac. Suspect canal stenosis. There is facet arthropathy and mild bilateral foraminal encroachment. L5-S1: Severe degenerative disc disease with diminutive spinal canal. Posterior disc osteophyte compl ex results in severe canal stenosis. There is facet arthropathy with severe bilateral foraminal encro achment. IMPRESSION: 1. Left paracentral and lateral disc bulging or protrusion L2-3 and L3-L4 with mild left foraminal en croachment. 2. Broad-based disc protrusion with canal stenosis and bilateral foraminal encroachment L4-5. 3. Diminutive spinal canal and severe degenerative disc disease with posterior disc osteophyte comple x L5-S1. Severe canal stenosis. Recommend MRI. 4. Soft tissue fullness in the right adnexa only partially included in the [id number] correlate wi pelvic ultrasound as clinically warranted.
[2023-12-09] MEDS ORDERED: NALOXONE 0.4 MG/ML 1 ML VIAL IV PRN (11:38)
[2023-12-09] MEDS: SODIUM CHLORIDE 0.9% 1,000 ML IV SCH (11:52)
[2023-12-09] MEDS ORDERED: BACLOFEN 10 MG TAB PO PRN (13:47)
--- NOTE | 2023-12-09 14:13 | P.CNOR ---
History of Present Illness - [facility] Consult date: 12/09/23 History of present illness: Patient is a 48-year-old female who presented to the ER due to worsening back pain. Orthopedics was consulted due to low back pain. Patient was seen at bedside this afternoon sitting up in chair in emergency department. Patient states about 2-1/2 weeks ago when she was at home she bent over from a seated position to grab something off the floor and her back gave out on her. She states she had immediate pain from the top of her back to her buttocks. Patient says that over the past couple weeks she has seen both chiropractor and primary care doctor where she has been treated with steroids muscle relaxers and manipulations without relief. Patient states over the past several days the pain is mostly localized to the low back with radiation down both legs and primarily down the left leg and goes all the way into her left foot. Patient does not note any significant weakness. Patient denies any issues with bowel or bladder control and denies saddle anesthesia. Patient says today the pain was too severe so she decided to come in the emergency department. Patient denies any previous spine surgery. Patient denies chest pain, fever, shortness of breath, nausea, vomiting, change vision, loss of bowel/bladder control. Past Medical History Past Medical History: Hypertension, Osteoarthritis (OA), Supraventricular Tachycardia (SVT) Additional Past Medical History / Comment(s): MIGRAINES, History of Any Multi-Drug Resistant Organisms: None Reported Past Surgical History: Section, Cholecystectomy, Orthopedic Surgery Additional Past Surgical History / Comment(s): ARTHROPSCOPIC RIGHT KNEE, GASTRIC SLEEVE, ESSURE Past Anesthesia/Blood Transfusion Reactions: Previous Problems w/ Anesthesia Additional Past Anesthesia/Blood Transfusion Reaction / Comm: PROBLEMS WITH INTUBATION" Past Psychological History: No Psychological Hx Reported Smoking Status: Never smoker Past Alcohol Use History: Rare Past Drug Use History: None Reported - Past Family History Mother Family Medical History: Deep Vein Thrombosis (DVT) Medications and Allergies Home Medications Medication Instructions Recorded Confirmed Type Baclofen 5 mg PO TID PRN 12/09/23 12/09/23 History Celecoxib [CeleBREX] 200 mg PO BID 12/09/23 12/09/23 History Levothyroxine Sodium [Synthroid] 75 mcg PO DAILY 12/09/23 12/09/23 History Losartan [Cozaar] 25 mg PO HS 12/09/23 12/09/23 History Allergies Allergy/AdvReac Type Severity Reaction Status Date / Time hydromorphone HCl AdvReac Abdominal Verified 12/09/23 12:21 [From Dilaudid] Pain Physical Examination Inspection: Negative for any open fractures, erythema/ecchymosis or open wounds. Sensation: Numbness and tingling present along L5 and S1 dermatomes on the left lower extremity. Equal, symmetric, intact throughout the rest of exam Palpation: Significant tenderness to palpation over the lower lumbar spine at midline and in the bilateral SI joints as well as in the paravertebral regions in the lower lumbar spine. NTTP on rest of exam Range of motion: Full range of motion throughout bilateral upper extremities on exam. There is some limited range of motion in hip flexion bilaterally se condary to referred pain to the low back. Full range of motion throughout bilateral knees and ankles on exam. Motor: 4/5 in bilateral hip flexion extension. 4+/5 in resisted knee flexion/tension bilaterally and ankle dorsi/plantarflexion bilaterally. 4/5 in EHL/FHL bilaterally Neurovascular: Radial pulse intact, 2+ bilaterally. DP pulses palpable bilaterally. Cap refill under 3 seconds in digits of upper extremities. Special test: Negative clonus bilaterally. Negative Aidan bilaterally. Negative Homans bilaterally. Positive straight leg raise on the left Results - Diagnostic results CT Scan - lumbar: report reviewed, image reviewed (CT scan of the lumbar spine has been reviewed. There is evidence lumbar spondylosis as well as degenerative disc disease and central canal stenosis at L5-S1. Bilateral neuroforaminal stenosis present throughout the lumbar spine) Assessment and Plan Assessment: 1. Bilateral lower extremity radiculopathy; low back pain; lumbar spondylosis, foraminal and central canal stenosis; degenerative disc disease Plan: 1. Bilateral lower extremity radiculopathy; low back pain; lumbar spondylosis, foraminal and central canal stenosis; degenerative disc disease - CT scan of the lumbar spine has been reviewed. There is evidence lumbar spondylosis as well as degenerative disc disease and central canal stenosis at L5-S1. Bilateral neuroforaminal stenosis present throughout the lumbar spine. I did discuss the findings of imaging and the exam with my attending, Dr. Larose. At this time we are recommending MRI of lumbar spine for further evaluation. We will start patient on Decadron 4 mg IVP every 6 hours as well as pain medication. We will await findings of the MRI lumbar spine before proceeding with any potential orthopedic intervention. Appreciate medical management. PT/OT recommendations. We will continue to follow patient during her stay in hospital. 2. Appreciate medical management 3. Pain management - gabapentin; flexeril 4. DVT prophylaxis - mechanical 5. GI prophylaxis - senna 6. PT/OT -weightbearing as tolerated with walker as needed 7. Encourage incentive spirometer use 8. Appreciate consult Time with Patient: Less than 30
[2023-12-09] MEDS: ONDANSETRON 4 MG/2 ML VIAL IVP PRN (14:43)
[2023-12-09] MEDS: MORPHINE SULFATE 4 MG/ML SYRINGE IV PRN (14:45)
[2023-12-09] MEDS: CYCLOBENZAPRINE 5 MG TAB PO SCH (16:07)
[2023-12-09] MEDS: GABAPENTIN 300 MG CAP PO SCH (16:07)
--- NOTE | 2023-12-09 16:12 | P.HPIM ---
History of Present Illness H&P Date: 12/09/23 History of Presenting Illness: Patient is a 48-year-old female with a past medical history of hypertension, hypothyroidism, osteoarthritis, and previous gastric sleeve. She presented to the hospital with a chief complaint of back pain. Patient reports lower back pain initially beginning approximately 2.5 weeks ago And progressively worsening. Patient reports initially just bending from a seated position the wrong way resulting in significant lower back pain with radiculopathies/sciatica to bilateral lower extremities worse on the left. Patient reports she has been evaluated by both her PCP and chiropractor and has completed steroid regimen with use of muscle relaxers without relief. Patient reports pain has continued to worsen despite outpatient treatment so she came to the emergency department for evaluation. Patient denies having any numbness or focal weakness in her extremities, denies any saddlebag anesthesias and denies having any involuntary loss of bowel or bladder. Upon arrival to our facility, patient underwent evaluation in the emergency department. Vital signs upon arrival show blood pressure 212/114, heart rate 76, respiratory rate 16, temp 98.0 F, and SpO2 of 99% on room air. CT lumbar spine was completed revealing a left paracentral and lateral disc bulging or protrusion from L2-L3 and L3-L4 with mild left foraminal encroachment, broad-based disc protrusion with canal stenosis and bilateral foraminal encroachment of L4-L5, diminutive spinal canal and severe degenerative disc disease with posterior disc osteophyte complex L5-S1, severe canal stenosis, and soft tissue fullness in the right adnexa only partially included in the [id number]. Patient was provided with symptomatic care and pain management. She was admitted under our services with consultation to orthospine surgery team. Review of systems: Pertinent positives and negatives as discussed in HPI, a complete review of systems was performed and all other systems are negative. Physical exam: Vital signs reviewed and stable. General: Nontoxic, no distress and appears stated age. Derm: Skin warm and dry, normal coloration for ethnicity. Head: Atraumatic, normocephalic and symmetric. Eyes: EOM's intact, no lid lag, and anicteric sclera Mouth: no lip lesions, mucus membranes moist Cardiovascular: regular rate and rhythm with normal S1S2, no murmur, positive posterior tibial pulses bilaterally, and cap refill < 2 seconds. Lungs: Respirations even, regular, and unlabored on room air. Lungs CTA bilaterally, no rhonchi, no rales, no wheezing, and no accessory muscle usage. Abdominal: soft, nontender to palpation, no guarding, no appreciable org anomegaly Ext: Movement and sensation intact. No gross muscle atrophy, no edema, no contractures Neuro: Speech clear, face symmetrical and CN II-XII grossly intact with no noted focal neuro deficits Psych: Alert and oriented to person, place, time, and situation. Appropriate and pleasant affect. Assessment and Plan of Care: Spinal canal stenosis with lumbar disc bulging Acute/subacute lower back pain with bilateral lower extremity radiculopathies worse on left -Orthospine surgery team consulted -Continue with symptomatic care and pain management with morphine 4 mg IVP every 4 hours as needed for severe pain, Neurontin 300 mg 3 times daily and Flexeril 5 mg 3 times daily. -Neurochecks every 4 hours -Fall precautions Hypertension -Patient with hypertensive urgency upon arrival, this is likely secondary to uncontrolled lower back pain. Will monitor at this time patient to continue with losartan 25 mg daily, may make additional changes if indicated based on vital signs once pain is controlled. Hypothyroidism -Continue daily medication regimen with levothyroxine 75 mcg daily. Data and imaging reviewed: As stated above in HPI. -Orders placed for STAT BMP and CBC as patient will need stat MRI with and without IV contrast of the lumbar spine. The patient is admitted with an anticipated greater than 2 midnight stay for evaluation of spinal canal stenosis with bilateral lower extremity radiculopathies. CODE STATUS: Full Code DVT prophylaxis: SCDs Anticipated discharge date: Pending clinical course Anticipated discharge place: Home Patient was seen independently by Nurse Practitioner. This document was prepared using [employer] dictation software. Please allow for errors in row boss hoeing while rare they do occur. Heriberto Garcia NP rendered care for this patient independently, reviewed the findings and plan as documented in the note above. I did not physically speak with or examine the patient on this date. Past Medical History Past Medical History: Hypertension, Osteoarthritis (OA), Supraventricular Tachycardia (SVT) Additional Past Medical History / Comment(s): MIGRAINES, History of Any Multi-Drug Resistant Organisms: None Reported Past Surgical History: Section, Cholecystectomy, Orthopedic Surgery Additional Past Surgical History / Comment(s): ARTHROPSCOPIC RIGHT KNEE, GASTRIC SLEEVE, ESSURE Past Anesthesia/Blood Transfusion Reactions: Previous Problems w/ Anesthesia Additional Past Anesthesia/Blood Transfusion Reaction / Comment(s): PROBLEMS WITH INTUBATION" Past Psychological History: No Psychological Hx Reported Smoking Status: Never smoker Past Alcohol Use History: Rare Past Drug Use History: None Reported - Past Family History Mother Family Medical History: Deep Vein Thrombosis (DVT) Medications and Allergies Home Medications Medication Instructions Recorded Confirmed Type Baclofen 5 mg PO TID PRN 12/09/23 12/09/23 History Celecoxib [CeleBREX] 200 mg PO BID 12/09/23 12/09/23 History Levothyroxine Sodium [Synthroid] 75 mcg PO DAILY 12/09/23 12/09/23 History Losartan [Cozaar] 25 mg PO HS 12/09/23 12/09/23 History Allergies Allergy/AdvReac Type Severity Reaction Status Date / Time hydromorphone HCl AdvReac Abdominal Verified 12/09/23 12:21 [From Dilaudid] Pain Physical Exam Vitals: Vital Signs Temp Pulse Resp BP Pulse Ox 12/09/23 13:09 97.9 F 83 18 147/80 97 12/09/23 10:42 98.1 F 68 18 159/91 97 12/09/23 09:39 98 F 76 16 212/114 99 Intake and Output 12/08/23 12/09/23 12/09/23 22:59 06:59 14:59 Other: Weight 113.398 kg Results CBC & Chem 7: 12/09/23 16:11
[2023-12-09 16:57] LABS: HCT 35.1 % (34.0-46.0); HGB 11.4 gm/dL (11.4-16.0); MCH 29.4 pg (25.0-35.0); MCHC 32.6 g/dL (31.0-37.0); MCV 90.3 fL (80.0-100.0); Mean Platelet Volume 7.1; Platelet Count 323 k/uL (150-450); RBC 3.89 m/uL (3.80-5.40); RDW 13.8 % (11.5-15.5); WBC 11.7 k/uL (3.8-10.6)
[2023-12-09 17:12] LABS: African American GFR (CKD) >90 (>60 ml/min/1.73 sqM); Anion Gap 2 mmol/L; Blood Urea Nitrogen 12 mg/dL (7-17); Calcium 8.8 mg/dL (8.4-10.2); Carbon Dioxide 27 mmol/L (22-30); Chloride 110 mmol/L (98-107); Glucose 81 mg/dL (74-99); Non-African American GFR(CKD) >90 (>60 ml/min/1.73 sqM); Potassium 4.2 mmol/L (3.5-5.1); Sodium 139 mmol/L (137-145)
[2023-12-09] MEDS: DEXAMETHASONE SOD PHOSPHATE 4 MG/ML 1 ML VIAL IVP SCH (18:00)
[2023-12-09] MEDS: LOSARTAN 25 MG TAB PO SCH (21:07)
[2023-12-10] MEDS: LEVOTHYROXINE 75 MCG TAB PO SCH (08:29)
--- NOTE | 2023-12-10 10:01 | P.PN ---
Subjective Progress Note Date: 12/10/23 Principal diagnosis: Bilateral lower extremity radiculopathy; low back pain; lumbar spondylosis, foraminal and central canal stenosis; degenerative disc disease Patient was seen at bedside this morning on 6 N. sitting up in chair. Patient says her pain has eased little bit when she has been changing positions today versus yesterday. Patient says that when she has gotten up from bed today there is less tightness in her back. She was started on gabapentin, Flexeril and Deca dron yesterday evening. Patient awaiting MRI of lumbar spine that is scheduled for this afternoon. Patient is looking forward to working with physical therapy today. Patient denies any other changes at this time. Objective - Vital Signs Vital signs: Vital Signs Temp 97.9 F 12/10/23 07:00 Pulse 74 12/10/23 07:00 Resp 16 12/10/23 07:00 BP 160/74 12/10/23 07:00 Pulse Ox 95 12/10/23 07:00 FiO2 Intake & Output 12/09/23 12/10/23 12/10/23 18:59 06:59 18:59 Weight 113.398 kg Other: # Voids 1 - Exam Inspection: Negative for any open fractures, erythema/ecchymosis or open wounds. Sensation: Numbness and tingling present along L5 and S1 dermatomes on the left lower extremity. Equal, symmetric, intact throughout the rest of exam Palpation: Significant tenderness to palpation over the lower lumbar spine at midline and in the bilateral SI joints as well as in the paravertebral regions in the lower lumbar spine. NTTP on rest of exam Range of motion: Full range of motion throughout bilateral upper extremities on exam. There is some limited range of motion in hip flexion bilaterally secondary to referred pain to the low back. Full range of motion throughout bilateral knees and ankles on exam. Motor: 4/5 in bilateral hip flexion extension. 4+/5 in resisted knee flexion/tension bilaterally and ankle dorsi/plantarflexion bilaterally. 4/5 in EHL/FHL bilaterally Neurovascular: Radial pulse intact, 2+ bilaterally. DP pulses palpable bilaterally. Cap refill under 3 seconds in digits of upper extremities. Special test: Negative clonus bilaterally. Negative Aidan bilaterally. Negative Homans bilaterally. Positive straight leg raise on the left - Labs CBC & Chem 7: 12/09/23 16:11 12/09/23 16:11 Labs: Abnormal Lab Results - Last 24 Hours (Table) 12/09/23 12/09/23 Range/Units 16:11 16:11 WBC 11.7 H (3.8-10.6) k/uL Chloride 110 H (98-107) mmol/L Assessment and Plan Assessment: 1. Bilateral lower extremity radiculopathy; low back pain; lumbar spondylosis, foraminal and central canal stenosis; degenerative disc disease Plan: 1. Bilateral lower extremity radiculopathy; low back pain; lumbar spondylosis, foraminal and central canal stenosis; degenerative disc disease - CT scan of the lumbar spine has been reviewed. There is evidence lumbar spondylosis as well as degenerative disc disease and central canal stenosis at L5-S1. Bilateral neuroforaminal stenosis present throughout the lumbar spine. I did discuss the findings of imaging and the exam with my attending, Dr. Larose. At this time we are recommending MRI of lumbar spine for further evaluation. We will start patient on Decadron 4 mg IVP every 6 hours as well as pain medication. We will await findings of the MRI lumbar spine before proceeding with any potential orthopedic intervention. MRI scheduled for this afternoon. Appreciate medical management. PT/OT recommendations. We will continue to follow patient during her stay in hospital. 2. Appreciate medical management 3. Pain management - gabapentin; flexeril 4. DVT prophylaxis - mechanical 5. GI prophylaxis - senna 6. PT/OT -weightbearing as tolerated with walker as needed 7. Encourage incentive spirometer use Time with Patient: Less than 30
[2023-12-10 10:20] LABS: HCT 35.5 % (37.2-46.3); HGB 11.3 g/dL (12.0-15.0); MCH 28.8 pg (27.0-32.0); MCHC 31.8 g/dL (32.0-37.0); MCV 90.6 FL (80.0-97.0); Mean Platelet Volume 10.3 FL (9.5-12.2); NRBC Per 100 WBC 0 X 10*3/uL (0.00-0.01); Platelet Count 333 X 10*3/uL (140-440); RBC 3.92 X 10*6/uL (4.10-5.20); RDW 13.5 % (11.5-14.5); WBC 10.49 X 10*3/uL (4.50-10.00)
[2023-12-10 10:23] LABS: Blood Urea Nitrogen 8.9 mg/dL (9.0-27.0); Calcium 8.8 mg/dL (8.7-10.3); Carbon Dioxide 22.7 mmol/L (21.6-31.8); Chloride 104 mmol/L (96-109); Glucose 151 mg/dL (70-110); Potassium 4.5 mmol/L (3.5-5.5); Sodium 137 mmol/L (135-145)
--- NOTE | 2023-12-10 13:23 | MR ---
EXAMINATION TYPE: MR lumbar spine wo/w con DATE OF EXAM: 12/10/2023 12:54 PM CLINICAL INDICATION: Female, 48 years old with history of back pain; PHH, Low back pain COMPARISON: 12/09/2023. TECHNIQUE: Multi planar, multi sequence imaging was performed utilizing: T1-weighted, T2-weighted, a nd turbo inversion recovery imaging of the lumbar spine. IV Contrast: 11 cc Gadavist. (None if empty) FINDINGS: Alignment: The lumbar vertebral bodies have preserved heights and alignment. Cord: The conus medullaris and the distal spinal cord appear unremarkable with regards to their signa l intensity and morphology. No abnormal postcontrast enhancement, Bones/Discs: Mild degeneration changes throughout the spine with osteophyte formation and facet joint arthropathy. Disc desiccation at L4-L5 and L5-S1. Modic endplate changes at the adjoining endplates of and L5-S1. Right ovarian cyst with thin septation measuring up to 5.4 cm No abnormal inversion rec overy signal to suggest bony edema. No abnormal postcontrast enhancement, T12-L1: No evidence of significant spinal canal stenosis or neural foraminal stenosis. L1-L2: No evidence of significant spinal canal stenosis or neural foraminal stenosis. L2-L3: No evidence of significant spinal canal stenosis or neural foraminal stenosis. L3-L4: No evidence of significant spinal canal stenosis or neural foraminal stenosis. L4-L5: No evidence of significant spinal canal stenosis or neural foraminal stenosis. L5-S1: The disc has a rounded posterior morphology without significant spinal canal stenosis. Facet j oint arthropathy with mild to moderate bilateral neural foraminal stenosis. No significant spinal canal or neural foraminal stenosis in the remainder of the visualized levels. Other findings: None. IMPRESSION: 1. No definitive evidence of disc herniation or significant spinal canal stenosis. 2. Degeneration worse at L5-S1 with Modic endplate changes. No bony edema visualized. No abnormal po stcontrast enhancement. With associated osteoarthritic changes. 3. Right ovarian cyst with thin septation measuring up to 5.4 cm further evaluation pelvic ultrasoun d if not recently performed recommended.
--- NOTE | 2023-12-10 16:32 | P.PN ---
Subjective Progress Note Date: 12/10/23 Hospital course: Patient is a 48-year-old female with a past medical history of hypertension, hypothyroidism, osteoarthritis, and previous gastric sleeve. She presented to the hospital with a chief complaint of back pain. Patient reports lower back pain initially beginning approximately 2.5 weeks ago And progressively worsening. Patient reports initially just bending from a seated position the wrong way resulting in significant lower back pain with radiculopathies/sciatica to bilateral lower extremities worse on the left. Patient reports she has been evaluated by both her PCP and chiropractor and has completed steroid regimen with use of muscle relaxers without relief. Patient reports pain has continued to worsen despite outpatient treatment so she came to the emergency department for evaluation. Patient denies having any numbness or focal weakness in her extremities, denies any saddlebag anesthesias and denies having any involuntary loss of bowel or bladder. Upon arrival to our facility, patient underwent evaluation in the emergency department. Vital signs upon arrival show blood pressure 212/114, heart rate 76, respiratory rate 16, temp 98.0 F, and SpO2 of 99% on room air. CT lumbar spine was completed revealing a left paracentral and lateral disc bulging or protrusion from L2-L3 and L3-L4 with mild left foraminal encroachment, broad-based disc protrusion with canal stenosis and bilateral foraminal encroachment of L4-L5, diminutive spinal canal and severe degenerative disc disease with posterior disc osteophyte complex L5-S1, severe canal stenos is, and soft tissue fullness in the right adnexa only partially included in the [id number]. Patient was provided with symptomatic care and pain management. She was admitted under our services with consultation to orthospine surgery team. Physical exam: Patient was seen and fully evaluated at bedside upon return from MRI. Patient reports she was experiencing moderate pain during MRI but currently reports pain in lower back is improved since returning to room and with repositioning. Vital signs reviewed and stable. General: Nontoxic, no distress and appears stated age. Derm: Skin warm and dry, normal coloration for ethnicity. Head: Atraumatic, normocephalic and symmetric. Eyes: EOM's intact, no lid lag, and anicteric sclera Mouth: no lip lesions, mucus membranes moist Cardiovascular: regular rate and rhythm with normal S1S2, no murmur, positive posterior tibial pulses bilaterally, and cap refill < 2 seconds. Lungs: Respirations even, regular, and unlabored on room air. Lungs CTA bilaterally, no rhonchi, no rales, no wheezing, and no accessory muscle usage. Abdominal: soft, nontender to palpation, no guarding, no appreciable organomegaly Ext: Movement and sensation intact. No gross muscle atrophy, no edema, no contractures Neuro: Speech clear, face symmetrical and CN II-XII grossly intact with no noted focal neuro deficits Psych: Alert and oriented to person, place, time, and situation. Appropriate and pleasant affect. Assessment and Plan of Care: Spinal canal stenosis with lumbar disc bulging Acute/subacute lower back pain with bilateral lower extremity radiculopathies worse on left -Orthospine surgery team following and ordered for lumbar spine MRI. -Continue with symptomatic care and pain management with morphine 4 mg IVP every 4 hours as needed for severe pain, Neurontin 300 mg 3 times daily and Flexeril 5 mg 3 times daily. -Neurochecks every 4 hours -Fall precautions -Follow-up with MRI lumbar spine results and further recommendations from orth ospine surgery team. Hypertension -Patient with hypertensive urgency upon arrival, this is likely secondary to uncontrolled lower back pain. Will monitor at this time patient to continue with losartan 25 mg daily, may make additional changes if indicated based on vital signs once pain is controlled. Hypothyroidism -Continue daily medication regimen with levothyroxine 75 mcg daily. Data and imaging reviewed: -Morning labs reviewed. CBC showing mild leukocytosis with WBC count of 10.49 and normocytic anemia with hemoglobin of 11.3. BMP was unremarkable. Blood glucose 151. -Vital signs reviewed. Blood pressure 160/74, heart rate 74, respiratory rate 16, temp 97.9 F, and SpO2 of 95% on room air. CODE STATUS: Full Code DVT prophylaxis: SCDs Anticipated discharge date: Pending clinical course Anticipated discharge place: Home Patient was seen independently by Nurse Practitioner. This document was prepared using [employer] dictation software. Please allow for errors in environmental health specialist while rare they do occur. I reviewed the documentation as provided by the ERROL above, who is the original author of this note. I agree with the documented assessment and plan, with the following changes: none Objective - Vital Signs Vital signs: Vital Signs Temp 97.9 F 12/10/23 07:00 Pulse 74 08/27/24 07:00 Resp 16 12/10/23 07:00 BP 160/74 12/10/23 07:00 Pulse Ox 95 12/10/23 07:00 FiO2 Intake & Output 12/09/23 12/10/23 12/10/23 18:59 06:59 18:59 Weight 113.398 kg Other: # Voids 1 - Labs CBC & Chem 7: 12/10/23 06:24 12/10/23 06:24 Labs: Abnormal Lab Results - Last 24 Hours (Table) 12/09/23 12/09/23 Range/Units 16:11 16:11 WBC 11.7 H (3.8-10.6) k/uL Chloride 110 H (98-107) mmol/L
[2023-12-10] MEDS: ACETAMINOPHEN TAB 325 MG TAB PO PRN (18:17)
[2023-12-10] MEDS: KETOROLAC 15 MG/ML 1 ML VIAL IVP STA (18:18)
--- NOTE | 2023-12-11 12:45 | P.PN ---
Subjective Progress Note Date: 12/11/23 Principal diagnosis: Bilateral lower extremity radiculopathy; low back pain; lumbar spondylosis, foraminal and central canal stenosis; degenerative disc disease Patient was seen at bedside this morning on 6 N. sitting up in chair. Patient says her pain has eased little bit when she has been changing positions today versus yesterday. Patient says that when she has gotten up from bed today there is less tightness in her back. MRI lumbar spine performed yesterday. Patient is looking forward to working with physical therapy today. Patient denies any other changes at this time. Objective - Vital Signs Vital signs: Vital Signs Temp 98.0 F 12/11/23 07:00 Pulse 65 12/11/23 07:00 Resp 16 12/11/23 07:00 BP 169/89 12/11/23 07:00 Pulse Ox 98 12/11/23 07:00 FiO2 Intake & Output 12/10/23 12/11/23 12/11/23 18:59 06:59 18:59 Intake Total 340 118 Balance 340 118 Intake: Oral 340 118 Other: # Voids 1 1 - Exam Inspection: Negative for any open fractures, erythema/ecchymosis or open wounds. Sensation: Numbness and tingling present along L5 and S1 dermatomes on the left lower extremity. Equal, symmetric, intact throughout the rest of exam Palpation: Significant tenderness to palpation over the lower lumbar spine at midline and in the bilateral SI joints as well as in the paravertebral regions in the lower lumbar spine. NTTP on rest of exam Range of motion: Full range of motion throughout bilateral upper extremities on exam. There is some limited range of motion in hip flexion bilaterally secondary to referred pain to the low back. Full range of motion throughout bilateral knees and ankles on exam. Motor: 4/5 in bilateral hip flexion extension. 4+/5 in resisted knee flexion/tension bilaterally and ankle dorsi/plantarflexion bilaterally. 4/5 in EHL/FHL bilaterally Neurovascular: Radial pulse intact, 2+ bilaterally. DP pulses palpable bilaterally. Cap refill under 3 seconds in digits of upper extremities. Special test: Negative clonus bilaterally. Negative Aidan bilaterally. Negative Homans bilaterally. Positive straight leg raise on the left - Labs CBC & Chem 7: 12/10/23 06:24 12/10/23 06:24 Assessment and Plan Assessment: 1. Bilateral lower extremity radiculopathy; low back pain; lumbar spondylosis, foraminal and central canal stenosis; degenerative disc disease Plan: 1. Bilateral lower extremity radiculopathy; low back pain; lumbar spondylosis, foraminal and central canal stenosis; degenerative disc disease - MRI of lumbar spine has been reviewed. There is evident degenerative disc disease and lumbar spondylosis especially at L4/L5 and L5/S1. I did discuss the findings of imaging and the exam with my attending, Dr. Laorse. At this time we are not recommending any emergent/urgent orthopedic surgical intervention we are recommending continued conservative measures with steroids and pain medication. Appreciate medical management. PT/OT recommendations. Patient is stable from an orthopedic standpoint for discharge. We do want patient to follow-up in the outpatient setting with Dr. Larose for continued eval. at this time orthopedics is signing off. Please do not hesitate to contact us for any further questions. 2. Appreciate medical management 3. Pain management - gabapentin; flexeril 4. DVT prophylaxis - mechanical 5. GI prophylaxis - senna 6. PT/OT -weightbearing as tolerated with walker as needed 7. Encourage incentive spirometer use Time with Patient: Less than 30
--- NOTE | 2023-12-11 14:31 | P.PAINPG ---
Objective - Vital Signs Vital signs: Vital Signs Temp 98.0 F 12/11/23 07:00 Pulse 65 12/11/23 07:00 Resp 16 12/11/23 07:00 BP 169/89 12/11/23 07:00 Pulse Ox 98 12/11/23 07:00 FiO2 Intake & Output 12/10/23 12/11/23 12/11/23 18:59 06:59 18:59 Intake Total 340 118 Balance 340 118 Intake: Oral 340 118 Other: # Voids 1 1 - Labs CBC & Chem 7: 12/10/23 06:24 12/10/23 06:24 PQRS Measure Charge Sheet Comment: HISTORY OF PRESENT ILLNESS: A 48 yr old inpatient female as a referral from [facility] presents today w severe and chronic LBP > 3 mo secondary to radiculopathy, spondylosis and facet arthropathy without myelopathy for evaluation. Pt states pain level is provoked at 7 /10 in intensity, constant, localized in the lower lumbar spine, predominantly axial, throbbing in character w occasional shooting pain towards the back of the L calf and foot. Pain is provoked by standing from a sitting position. Pain is alleviated by medications (MS ER 4mg IVP q4h prn, Neurontin 300mg TID, Tyl 650mg q6h prn, Flexeril 5mg TID prn), manual massage, repositioning and rest . PMH: OA, HTN, SVT PSH: Section, Cholecystectomy, R Knee Arthroscopy, Gastric Sleeve, Essure SH: Negative x3 FH: Mo- DVT All: See list Meds: See list REVIEW OF ORGAN SYSTEMS: CONSTITUTIONAL: No fevers or chills. No recent weight loss. NEUROLOGICAL: + numbness and tingling along the distal extremities. No seizure disorders or headaches. MUSCULOSKELETAL: + pain PSYCHIATRIC: Denies current depression or suicidal thoughts. Physical Examinations : Constitutional : Cooperative , not in acute distress . Neurologic : Cranial nerve II to XII intact. No focal neurological deficits. Psychiatric : alert & oriented x 3. Matching mood & appropriate affect. Judgment & insight intact. Musculoskeletal : Cervical Spine Motor strength in the deltoid and biceps: Normal right side. Normal Left side Motor strength biceps and the wrist extensors: Normal right side . Normal left side Motor strength in the triceps muscle: Normal right side. Normal left side Deep tendon reflexes: Normal at the biceps. Normal at Brachioradialis. Normal at triceps Vertebral body tenderness to deep palpation over Cervical facet loading test: positive bilaterally Spurling test: positive bilaterally Neck distraction test: positive bilaterally Aidan sign: positive bilaterally Lumbar spine Motor strength lower extremities ,thigh and legs 5/5 Right side , 5/5 Left side Deep tendon reflexes : Normal Knee Jerk. Normal Ankle Jerk Vertebral body tenderness over L5 Juarez Test positive Lumbar facet Loading Test: positive Right / positive Left Range of motion of the lumbar spine Flexion 30 degrees, extension 10 degrees Straight Leg Raise test: Left/ Right positive at < 30 degrees Steven test: positive right / positive left. Severe tenderness over the Sacroiliac joint on the Right / Left sides Gaenslen test: positive bilaterally Seated flexion test: positive bilaterally. Sacral spine : Severe tenderness over the Sacroiliac joint: right side / left side Range of motion: Flexion of the lumbar spine <60 degrees Range of motion: Extension of the lumbar spine <20 degrees Gaenslen's Test positive Steven test: positive right side / left side Thigh Thrust Test Sacral Thrust Test Imaging: CT non contrast lumbar spine from 12/09/23 reviewed Assessment/ Plan : Lumbar radiculopathy Recommendation of CHIQUI L5-S1 #1. Risks, benefits of procedure discussed and patient verbalized understanding. All questions answered. I have spent greater than 30 minutes on patient care today. Dr Rock was available by phone for the evaluation of this patient. The time was used to review the medical records including relevant urine studies and Prescription history (MAPs), review of the available imaging, evaluation and examination of the patient, coordination of care with the medical staff and if applicable referring physicians, as well as creation of the medical record - Pain Location Back Non-Pharmacological Interventions: Darkened Room Pharmacological Interventions: Discuss Pain Med Options, PRN Medication PQRS Narrative: Smoking Status Never smoker Blood Pressure [Right Arm] 169/89 Blood Pressure [Left Arm] 143/89 Blood Pressure 155/88 Pain Intensity [Back] 0 Pain Intensity 8 Pain Scale Used Numeric (1 - 10) Scale Used Numeric (1 - 10) Home Medications: Ambulatory Orders Baclofen 5 mg PO TID PRN 12/09/23 Celecoxib [CeleBREX] 200 mg PO BID 12/09/23 Levothyroxine Sodium [Synthroid] 75 mcg PO DAILY 12/09/23 Losartan [Cozaar] 25 mg PO HS 12/09/23 Gabapentin 300 mg PO TID #21 cap 12/11/23 methylPREDNISolone Dose Pack [Medrol Dose Pack] 4 mg PO DIRECTED #21 tab 12/11/23 Controlled Substance Measures - Controlled Substance Measures Is patient prescribed a controlled substance at discharge?: No
--- NOTE | 2023-12-11 15:37 | P.PN ---
Subjective Progress Note Date: 12/11/23 Principal diagnosis: back pain Still with severe back pain, preventing her from sleep. Ambulation is difficult in am. No n/v, no fevers. Objective - Vital Signs Vital signs: Vital Signs Temp 97.6 F 12/11/23 15:00 Pulse 82 12/11/23 15:00 Resp 16 12/11/23 15:00 BP 142/90 12/11/23 15:00 Pulse Ox 96 12/11/23 15:00 FiO2 Intake & Output 12/10/23 12/11/23 12/11/23 18:59 06:59 18:59 Intake Total 340 236 Balance 340 236 Intake: Oral 340 236 Other: # Voids 1 1 1 - Exam Constitutional: No acute distress, conversant, pleasant Eyes:Anicteric sclerae, moist conjunctiva, no lid-lag, PERRLA, ENMT: Oropharynx clear, no erythema, exudates Neck: Supple, FROM, no masses, or JVD, No carotid bruits, No thyromegaly Lungs: Clear to auscultation, Clear to percussion, Normal respiratory effort, no accessory muscle use Cardiovascular: Heart regular in rate and rhythm, No murmurs, gallops, or rubs, No peripheral edema Abdominal: Soft, Nontender, no guarding, rebound or rigidity, Normoactive bowel sounds, No hepatomegaly, No splenomegaly, No palpable mass Skin: Normal temperature, tone, texture, turgor, no induration, No subcutaneous nodules, No rash, lesions, No ulcers Extremities: No digital cyanosis, No clubbing, Pedal pulses intact and symmetrical, Radial pulses intact and symmetrical, No calf tenderness Psychiatric: Alert and oriented to person, place and time, appropriate affect, intact judgement Neuro: Muscles Strength 5/5 in all 4 extremities, Sensation to light touch grossly present throughout, Cranial nerves II-XII grossly intact, no focal sensory deficits - Labs CBC & Chem 7: 12/10/23 06:24 12/10/23 06:24 Assessment and Plan Plan: Acute/subacute lower back pain with bilateral lower extremity radiculopathies worse on left -Orthospine surgery team following, lumbar spine MRI done showing some degenerative changes. -Planing back injection in am. -Continue with symptomatic care and pain management with morphine 4 mg IVP every 4 hours as needed for severe pain, Neurontin 300 mg 3 times daily and Flexeril 5 mg 3 times daily. Hypertension -Patient with hypertensive urgency upon arrival, this is likely secondary to uncontrolled lower back pain. -Continue bp meds Hypothyroidism -Continue daily medication regimen with levothyroxine 75 mcg daily. Lab data and imaging reviewed CODE STATUS: Full Code DVT prophylaxis: SCDs Anticipated discharge date: Pending clinical course Anticipated discharge place: Home
[2023-12-11] MEDS ORDERED: ACETAMINOPHEN TAB 325 MG TAB ONE (23:12)
--- NOTE | 2023-12-12 05:29 | P.PN ---
Progress Note - Text Progress Note Date: 12/12/23 48 yo female with co low back and LE radiculopathy MRI shows severe spondylosis with disc collapse, bilateral foaminal stenosis R>L due to the collapse as well as central stenosis due to a large disc osteophyte complex. Pt has had conservative tx in the past. Will see how CHIQUI does for patient. She needs L5-S1 fusion for definitive treatment. If desired by patient can do on Saturday vs out basis depending on condition. We will follow this pt during her stay. Thank you for this consultation. Please do not hesitate to contact Spine Service with any questions.
[2023-12-12] MEDS: HYDROcodone/APAP 5-325MG 1 EACH TAB PO STA (11:42)
[2023-12-12] MEDS ORDERED: methylPREDNISolone ACETATE 80 MG/ML 1 ML VIAL ONE (12:48)
[2023-12-12] MEDS ORDERED: IOPAMIDOL M200 10 ML VIAL ONE (12:48)
--- NOTE | 2023-12-12 12:55 | P.PCN ---
Date of Procedure: 12/12/23 Procedure(s) Performed: PREOPERATIVE DIAGNOSIS: 1- Lumbar Degenerative Disc Diseases 2-Lumbar spondylosis with Facet arthropathy without myelopathy. 3-lumbar radiculopathy POSTOPERATIVE DIAGNOSIS: 1-lumbar degenerative disc disease. 2-lumbar spondylosis with facet arthropathy without myelopathy. 3-lumbar radiculopathy. PROCEDURE 1. Lumbar epidural steroid injection under fluoroscopic guidance at the L5-S1 level. (Fluoroscopy imaging was available in radiology department) 2. Lumbar epidurogram. ANESTHESIA: Lidocaine 1% 3 and then only. EBL: Minimal PROCEDURE INDICATION: The patient with low back pain and radiculitis symptoms unresponsive to conservative treatment. Fluoroscopy was used to optimize visualization of the needle placement and to maximize safety. PROCEDURE DESCRIPTION / TECHNIQUE: The patient was seen and identified in the preoperative area. Risks, benefits, complications including but not limited to infections ,bleeding ,allergic reaction to the medications ,nerve damage and not complete pain releife , and alternatives were discussed with the patient. The patient agreed to proceed with the procedure and signed the consent, and vital signs were stable. Patient was taken to the OR and time out was completed. The patient was placed in the prone position on procedure table and a pillow was placed under the abdomen to reduce lumbar lordosis. The lumbosacral area was prepped and draped in the usual sterile fashion.ere closely monitored during the procedure. Vital signs was monitered during the entire procedure. Using anterior-posterior fluoroscopy, the L5-S1 interlaminar space was identified and the skin over this site was marked and then infiltrated with 1% lidocaine subcutaneously. Subsequently, a 18-gauge 6 inches long Tuohy epidural needle was inserted and advanced toward the epidural space using the ``Loss of resistance technique and guided by AP and lateral fluoroscopy. The correct needle position in the epidural space was verified with the injection of 2 mL of the water soluble contrast dye Isovue 200 contrast and observing an excellent epidurogram with the epidural spread of the dye, after negative aspiration for blood and CSF and in the absence of paresthesias. Again after negative aspiration, a 6 ml mixture containing 80 mg of Depo-medrol ( Preservetive Free ), and 2 ml of preservative free Normal Saline, and 2 ml of preservative free lidocaine 1% solution was injected and a washout of epidurogram was seen. Needle was withdrawn intact, skin was cleansed, and bandages were applied. COMPLICATIONS: None DISPOSITION / PLANS: The patient was placed in a supine position and transferred to the recovery area in a stable condition for observation. There was no evidence of lower extremity motor or sensory deficit after the procedure. Patient was discharged from the recovery room after meeting discharge criteria. Home discharge instructions were given to the patient by the staff. The patient was reexamined prior to discharge. The patient will schedule a follow up in the clinic in 2-4 weeks.
--- NOTE | 2023-12-12 14:12 | FL ---
EXAMINATION TYPE: FL guided pain mgmt statistic Intraoperative/procedural fluoroscopic services were provided. Total fluoroscopy time is 2.4 seconds with a total of 1 submitted images to PACS. Please se e the operative/procedural note for further details. DAP: [id number] mGym2
--- NOTE | 2023-12-12 14:22 | P.DS ---
Providers Date of admission: 12/09/23 11:38 Expected date of discharge: 12/12/23 Attending physician: Johnathon Amos MD Consults: 12/09/23 11:38 Consult Physician Routine Consulting Provider: Daryl Larose Consult Reason/Comments: back pain Do you want consulting provider notified?: Yes Primary care physician: [facility] Hospital Course: 48-year-old female with a past medical history of hypertension, hypothyroidism, osteoarthritis, and previous gastric sleeve. She presented to the hospital with a chief complaint of back pain. Patient reports lower back pain initially beginning approximately 2.5 weeks ago And progressively worsening. Patient reports initially just bending from a seated position the wrong way resulting in significant lower back pain with radiculopathies/sciatica to bilateral lower extremities worse on the left. Patient reports she has been evaluated by both her PCP and chiropractor and has completed steroid regimen with use of muscle relaxers without relief. Patient reports pain has continued to worsen despite outpatient treatment so she came to the emergency department for evaluation. Patient denies having any numbness or focal weakness in her extremities, denies any saddlebag anesthesias and denies having any involuntary loss of bowel or bladder. Upon arrival to our facility, patient underwent evaluation in the emergency department. Vital signs upon arrival show blood pressure 212/114, heart rate 76, respiratory rate 16, temp 98.0 F, and SpO2 of 99% on room air. CT lumbar spine was completed revealing a left paracentral and lateral disc bulging or protrusion from L2-L3 and L3-L4 with mild left foraminal encroachment, broad- based disc protrusion with canal stenosis and bilateral foraminal encroachment of L4-L5, diminutive spinal canal and severe degenerative disc disease with posterior disc osteophyte complex L5-S1, severe canal stenosis, and soft tissue fullness in the right adnexa only partially included in the [id number]. Patient was provided with symptomatic care and pain management. She was admitted under our services with consultation to orthospine surgery team. patient was admitted, she was initiated on symptomatic treatment with pain control. she was seen by orthopedics who recommended MRI of the lower back. MRI showed severe spondylosis with disc collapse, bilateral foaminal stenosis R>L due to the collapse as well as central stenosis due to a large disc osteophyte complex. orthopedic surgeon recommended elective L5/S1 fusion. Patient also had back steroid epidural injection. she is currently feeling better. He was referred to outpatient physical therapy, also advised to exercise and lose weight. she'll be discharged home in stable condition. Time for discharge 35 minutes Patient was evaluated and examined on the day of discharge 12/11. Patient Condition at Discharge: Fair Plan - Discharge Summary Discharge Rx Participant: No New Discharge Prescriptions: New Gabapentin 300 mg PO TID #21 cap methylPREDNISolone Dose Pack [Medrol Dose Pack] 4 mg PO DIRECTED #21 tab Gabapentin [Neurontin] 300 mg PO TID cap HYDROcodone/APAP 5-325MG [[place] 5-325] 1 tab PO Q6HR PRN 3 Days #12 tab PRN Reason: Pain Cyclobenzaprine [Flexeril] 5 mg PO TID 30 Days #60 tab Acetaminophen Tab [Tylenol] 650 mg PO Q6HR PRN tab PRN Reason: Mild Pain Or Fever > 100.5 Continue Levothyroxine Sodium [Synthroid] 75 mcg PO DAILY Baclofen 5 mg PO TID PRN PRN Reason: Muscle Spasm Losartan [Cozaar] 25 mg PO HS Celecoxib [CeleBREX] 200 mg PO BID Discharge Medication List Baclofen 5 mg PO TID PRN 12/09/23 [History] Celecoxib [CeleBREX] 200 mg PO BID 12/09/23 [History] Levothyroxine Sodium [Synthroid] 75 mcg PO DAILY 12/09/23 [History] Losartan [Cozaar] 25 mg PO HS 12/09/23 [History] Gabapentin 300 mg PO TID #21 cap 12/11/23 [Rx] methylPREDNISolone Dose Pack [Medrol Dose Pack] 4 mg PO DIRECTED #21 tab 12/11/23 [Rx] Acetaminophen Tab [Tylenol] 650 mg PO Q6HR PRN tab 12/12/23 [Rx] Cyclobenzaprine [Flexeril] 5 mg PO TID 30 Days #60 tab 12/12/23 [Rx] Gabapentin [Neurontin] 300 mg PO TID cap 12/12/23 [Rx] HYDROcodone/APAP 5-325MG [[place] 5-325] 1 tab PO Q6HR PRN 3 Days #12 tab 12/12/23 [Rx] Follow up Appointment(s)/Referral(s): [facility] [NON-STAFF] - 1 Week Daryl Larose DO [Doctor of Osteopathic Medicine] - 1 Week Adonay Sam DO [Primary Care Provider] - 1-2 days Patient Instructions/Handouts: Lumbar Spinal Stenosis (DC), Lumbar Spinal Stenosis (GEN) Discharge/Stand Alone Forms: [facility] Instructions Discharge Disposition: HOME SELF-CARE
[2023-12-12] MEDS: amLODIPine 5 MG TAB PO STA ×2 (15:20→18:18)
[2023-12-12] MEDS ORDERED: HYDROcodone/APAP 5-325MG 1 EACH TAB PO PRN (16:53)
[2023-12-13 10:14] VITALS: BP 148/95; PULSE 82; RESP 16; TEMP 97.6
== END 2023-12-13 10:29 | disposition home or self-care (01) ==
LOC: EC 09:36 → 6NMEDSUR 11:38
PROVIDERS: ADMIT Student in an Organized Health Care Education/Training Program; ATTEND Student in an Organized Health Care Education/Training Program
DX: M51.16 Intervertebral disc disorders with radiculopathy, lumbar region (principal); M47.26 Other spondylosis with radiculopathy, lumbar region; M48.061 Spinal stenosis, lumbar region without neurogenic claudication; M25.78 Osteophyte, vertebrae; D72.829 Elevated white blood cell count, unspecified; D64.9 Anemia, unspecified; I16.0 Hypertensive urgency; I10 Essential (primary) hypertension; E03.9 Hypothyroidism, unspecified; Z98.84 Bariatric surgery status; Z79.1 Long term (current) use of non-steroidal anti-inflammatories (NSAID); Z79.890 Hormone replacement therapy; Z79.899 Other long term (current) drug therapy; Z88.5 Allergy status to narcotic agent
CPT/HCPCS: 62323; 72131; 72158; 80048; 85027; 96361; 96372; 96374; 96375; 96376; 99285

== ENCOUNTER → 2023-12-24 | Outpatient (CLI) | payer BC ==
--- NOTE | 2023-12-24 16:55 | US ---
EXAMINATION TYPE: US pelvic complete DATE OF EXAM: 12/24/2023 COMPARISON: CT 2021, US 2011 CLINICAL INDICATION: Female, 48 years old with history of N83.201 UNSPECIFIED OVARIAN CYST, RIGHT ELIZABETH E; TECHNIQUE: . Transabdominal sonographic images of the pelvis were acquired. Date of LMP: 8+ years ago EXAM MEASUREMENTS: Right Ovary: 4.2 x 2.6 x 3.6 cm Left Ovary: 2.8 x 1.3 x 1.9 cm 1. Uterus: surgically absent 2. Endometrium: surgically absent 3. Right Ovary: 2.5 x 2.4 x 2.2cm cyst 4. Left Ovary: wnl 5. Bilateral Adnexa: wnl 6. Posterior cul-de-sac: wnl IMPRESSION: 1. Postsurgical changes with no definite acute process.
== END | disposition home or self-care (01) ==
LOC: RADUSWWP 15:43
PROVIDERS: ATTEND Family Medicine
DX: N83.201 Unspecified ovarian cyst, right side (principal)
CPT/HCPCS: 76856

== ENCOUNTER → 2024-02-19 | Outpatient (CLI) | payer BC | END | disposition home or self-care (01) | LOC: LABPAT 15:07 | PROVIDERS: ATTEND Orthopaedic Surgery | DX: Z22.322 Carrier or suspected carrier of Methicillin resistant Staphylococcus aureus (principal); Z01.812 Encounter for preprocedural laboratory examination; M48.061 Spinal stenosis, lumbar region without neurogenic claudication; M51.360 Other intervertebral disc degeneration, lumbar region with discogenic back pain only | CPT/HCPCS: 36415; 86850; 86900; 86901; 87070 ==

== ENCOUNTER 2024-02-25 08:34 | Day surgery (SDC) | payer BC ==
--- NOTE | 2024-02-24 19:42 | P.HPOR ---
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 Physical examination demonstrates positive straight leg raise and crossed straight leg raise tests, left lower extremity weakness (4+/4 proximally, 4/3 distally), decreased left Achilles reflex (1+), and L5-S1 dermatomal sensory changes. Advanced imaging (MRI/CT) reveals severe L5-S1 collapse with Modic changes, left paracentral disc herniation causing S1 nerve root displacement, disc osteophyte complex, and severe bilateral foraminal and central stenosis. The patient has failed multiple conservative treatments including physical therapy, home exercise program, CHIQUI injection at L5-S1, medications (including NSAIDs, steroids, and gabapentin), and alternative therapies (RICE, massage). 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 Loaiza presents to the office today, 02/19/24, for a preoperative appointment preceding her L5-S1 laminectomy. Patient continues to report low back pain that radiates into the left lower extremity. Since last visit patient has developed numbness of the left heel. She states she did not have this symptom previously. She states her pain is effecting her activities of daily living. She is not currently taking any pain medications. Patient denies any f/c/sob/cp, perineal numbness or tingling, bowel, or bladder incontinence/retention. Patient is ambulatory independently. P1 The patients past social, medical, family, surgical history, as well as review of systems, have been reviewed. Please refer to the History and Physical form that has been scanned into our electronic medical record system. R0 16 points review of systems completed and as stated in HPI, all other systems reviewed are negative. PAST TREATMENTS: PAST IMAGING: YES -MRI, XR, CT TRAUMA RELATED: NO - WORK RELATED: NO - PT IN LAST 6 MONTHS: YES -NO IMPROVEMENT PHYSICIAN DIRECTED HOME EXERCISE PROGRAM: YES -NO IMPROVEMENT ACTIVITY MODIFICATION: YES -LIMITED BLTPP, NOT BY CHOICE BUT BY NECESSITY. UNABLE TO DO ADLS LIKE NORMAL ANY LONGER MEDICATIONS: YES -TYLENOL, MOTRIN, ALEVE, PREDNISONE TRIALS, GABAPENTIN TRIAL ALTERNATIVE INTERVENTIONS (CHIROPRACTIC, ACUPUNCTURE, MASSAGE, RICE): YES -RICE, MASSAGE, MINIMAL RELIEF BRACING: NO - INJECTIONS (CHIQUI, TF, RFA): YES -CHIQUI L5-S1 NO RELIEF. MEDICAL HISTORY: Past Medical History: REVIEWED STATED IN CHART Past Surgical History: REVIEWED STATED IN CHART Social History: REVIEWED STATED IN CHART SMOKING: Never smoker ETOH: None SUBSTANCES: None Family History: REVIEWED STATED IN CHART P1 Current Medications: Rx: CeleBREX Ref: 0 Instructions: as needed Rx: Flexeril Ref: 0 Rx: gabapentin 300 mg capsule Ref: 0 Instructions: take 1 capsule (300 mg) by oral route 3 times per day Rx: levothyroxine Ref: 0 Rx: losartan Ref: 0 Rx: T-3 , Ref: 0 P1 PHYSICAL EXAM: General: AOX3, NAD, Well hydrate, well nourished HEENT: No lumps or masses Extremities: No color changes, no pooling INTEGUMENT: Appearance: Normal color and turgor Surgical Incisions: none Hairy Patches: ABSENT Dorsal Skin Dimples: Normal [employer] spots: ABSENT PALPATION: TTP Midline: NO Paracervical: NO Parathoracic: NO Paralumbar: YES SIJ TESTING: TESTED * [place] Finger: - * FABER4: - * Compression:- * Distraction: - * Thigh thrust: - * Hip thrust: - POSTURAL BALANCE: Coronal: BALANCED Sagittal: BALANCED Shoulder height: LEVEL Pelvic Girdle: LEVEL ROM AND APPEARANCE: Neck: UNRESTRICTED Lumbar: RESTRICTED Shoulders: Symmetrical Hips: Symmetrical Knees: Symmetrical Hands: Symmetrical Feet: Symmetrical VASCULAR STATUS: PALPABLE PULSES B/L UE AND LE 2/4 RAD/ULNAR/DP/PT Edema: NONE NEUROLOGICAL EXAMINATION: Mental Status: Awake, alert, fully oriented with normal attention, concentration, and memory. Fluent appropriate speech. CRANIAL NERVES: I: Olfactory not assessed. II: Visual acuity normal, no visual field deficit noted with confrontation. III, IV: Normal pupillary reflexes & intact extraocular movements without nystagmus. V, : Intact symmetrical facial sensation. VII: Intact symmetrical facial motor movement: Hearing intact. IX, X: Intact gag, swallow, & normal voice. XI: Sternocleidomastoid, trapezius function intact. XII: Tongue midline with normal movements. TENSIONING: * L'HERMITTE'S SIG:NEG SPURLUNG'S SIGN:NEG CUBITAL TUNNEL COMPRESSION:NEG TINELS AT WRIST:NEG STRAIGHT LEG RAISE:POS LEFT CONTRALATERAL STRAIGHT LEG RAISE: POS RIGHT MOTOR EXAM (0-5/5, NT) Muscle appearance: Symmetrical, without signs of atrophy or dystrophy UPPER EXTREMITY RIGHT LEFT Shoulder Abduction 5 5 Biceps 5 5 Triceps 5 5 Wrist Extension 5 5 Hand Intrinsics 5 5 Contact Lens Cutter 5 5 LOWER EXTREMITY RIGHT LEFT Hip Flexion 5 4+ Knee Extension 5 4+ Knee Flexion 5 4+ Dorsiflexion 5 4+ Plantarflexion 5 4 EHL 5 4 FHL 5 3 REFLEXES (0-4/2, NT): RIGHT LEFT Bicep 2 2 Brachioradialis 2 2 Triceps 2 2 Patellar 2 2 Achilles 2 1 PATHOLOGICAL REFLEXES: RIGHT LEFT ARIAS'S ABSENT ABSENT CLONUS ABSENT ABSENT BABINSKI ABSENT ABSENT RECTAL TONE: INTACT/NT SENSATION (0-4, NT): Sensation intact to LT and Pain * C5-T1 distribution BUE * L2-S2 distribution BLE *Exceptions below* DERMATOMAL DEFICIT/RADICULAR PATTERN: L5-S1 LEFT GAIT AND FUNCTIONAL EVALUATION: AMBULATORY AID none ROMBERG'S TEST INTACT HAND AND FINGER DEXTERITY INTACT YES DYSDIADOCHOKINESIA EXAM NEG B/L YES TOE/HEEL WALK INTACT WITH GOOD BALANCE NO SQUAT AND RISE W/O ASSISTANCE TO 60 DEG KNEE FLEXION NO SINGLE LEG STANCE INTACT TRENDELENBURG NEG IMAGING: XRAY Date: Jan 15, 2024 Region:Lumbar Location: [facility] Views: AP/LAT/FLEX/EXT/OB/Pelvis FINDINGS: Images reviewed with patient in office These demonstrate L5-S1 severe collapse, spondylosis and facet arthrosis causing b/l foraminal stenosis and likely central stenosis. There appears to be b/l spondylolysis as well at the L5-S1 level with angular translation on F/E films due to the defect. No other fractures noted at this time. No lesions noted. AP pelvis shows congruent level pelvis w/o fracture. CT Date: 12/09/23 Location: [facility] Region: lumbar Contrast: N IMAGES ARE REVIEWED WITH THE PATIENT IN OFFICE AND DEMONSTRATE THE FOLLOWING: FINDINGS: SEVERE COLLAPSE L5-S1 WITH DISC OSTEOPHYTE COMPLEX CAUSING LEFT FORAMINAL AND CENTRAL WELL LATERAL RECESS STENOSIS. VACUUM DISC PHENOM. NO LESIONS. SCLEROTIC ENDOPLATE CHANGES L5-S1 SUGGESTING SEVERE COLLAPSE. NO FRACTURE. MRI Date: 12/10/23 Location: [facility] Region: Lumbar Contrast: N IMAGES ARE REVIEWED WITH THE PATIENT IN OFFICE AND DEMONSTRATE THE FOLLOWING: FINDINGS: SEVERE COLLPASE WITH MODIC CHANGES L5-S1 NOTED WITH HNP PARACENTRAL ON THE LEFT AT L5-S1 CAUSING S1 ENCROACHMENT AND DISPLACEMENT. DISC OSTEOPHYTE TYPE COMPLEX IN THIS AREA. DDD IS SEVERE WITH COMPLETE COLLAPSE OF THE SPACE WITH FACET ARTHROSIS NOTED. NO LESIONS NO FRACTURES NOTED. IMPRESSION: It was my pleasure to have seen and examined Kerry. I reviewed the patient's clinical syndrome, physical findings, and imaging studies during the appointment today. It is my impression that the patient has a diagnosis of. 1.L5-S1 SPONDYLOLYSIS WITH SPONDYLOSIS AND STENOSIS 2.LEFT LOWER EXTREMITY RADICULOPATHY 3.LOW BACK PAIN PLAN: DISCUSSION: -I have discussed risks and benefits of the procedure with Kerry as well as treatment options and alternatives. She is comfortable proceeding. She continues to have refractory pain despite conservative measures and progressive LLE weakness and pain that is no longer bareable for her. She states RX, OTC meds no longer hlep. PT made worse and HEP is not helping. She is ready to proceed as follows: SURGICAL RECOMMENDATION -L5-S1 LAMINOFORAMINOTOMY, LEFT Surgical Procedure Risk Review Kerry Loaiza is a 48 year old female presenting for evaluation of sudden onset of LLE pain, weakness, low back pain, claudicant as well as radiculopathig pain. It was my pleasure to have seen and examined Ms. Loaiza. In our visit today we have had a chance to go over subjective complaints, physical examination findings and treatments, including the natural course history without intervention and various interventional options. The imaging demonstrates Stenosis at L5-S1 with paracentral disc HNP on theleft at L5-S1 with central and foraminal stenosis related. . On physical exam, Ms. Loaiza demonstrates LLE tensioning signs as well as + SLR and CSLR. She continues to have pain despice conservative measures. I explained to the patient that as her condition progresses it could cause Progressive pain, weakness, radiculopathy and possible progression of issues . At this time, based on the patients imaging and physical exam, I recommend surgery in the form or a: L5-S1 LEFT LAMINOFORAMINOTOMY . I discussed the risk and benefits of this procedure at length with Ms. Loaiza. The patient agreed to consider pursuing the procedure mentioned above. Plan: 1. L5-S1 LEFT LAMINOFORAMINOTOMY 2. Follow up with PCP for surgical clearance 3. Review of surgical risks and benefits as well as an educational packet on the proposed surgical procedure. 4. PRE OP PROTOCOLS Risks: All surgical procedures come with inherent risks, including those related to positioning, anesthesia, intraoperative findings, and postoperative complications. It is important to understand that surgery does not come with any guarantee of a successful outcome as complications and adverse events are always possible. The patient was given a handout in office today discussing the surgical procedure and risks associated with the intervention, both of which were discussed with the patient. These risks include but are not limited to the f ollowing: ? Experiencing same, different or even worse symptoms in back, neck, arms, or legs compared to before surgery. ? Requiring further surgery or other forms of treatment presently or at some time in the future at same or other levels of the intended spine surgery. ? On an extreme but fortunately relatively rare basis severe complication such as blindness, stroke, heart attack, temporary and/or permanent nerve injury, paralysis, coma, or may occur, sometimes without known explanation. ? Surgical complications may include but are not limited to risk of in fection, fluid accumulation in the surgical dissection site, including a seroma or hematoma, that requires additional surgery, wound drainage, bleeding, new numbness or weakness, vision changes/loss, spinal fluid leakage, non-healing and/or infected incision, headaches, difficulty or inability to swallow, hoarseness, hemopneumothorax, pneumothorax, impotence, retrograde ejaculation, vaginal dryness; injury to nerves, spinal cord, blood vessels, lymphatics or other vital organs (i.e., bowel injury, injury to the great vessels); heterotopic bone formation; complications related to the hardware such as screws, rods, cages including misplaced hardware, device failure, instrumentation at the wrong spine level, hardware fracture/breakage, or hardware loosening; vertebral failure of the spinal column above or below the newly placed hardware; retained surgical instrumentations or devices and the need for further surgery. ? Medical risks of the planned spine surgery include but are not limited to generalized Infections to the whole body or local areas outside of the surgical site (sepsis), heart attack, bleeding, anaphylaxis, meningitis, seizure, epilepsy, hearing loss, burn garibay, laceration of the head or other areas of the body, bruising, hypersensitivity of the skin, bladder over distension; allergic reaction; shoulder injury related to positioning; fat, blood and air clots to other areas of the body like heart, lungs, brain; failure of internal organs such as lungs, kidneys, liver and excessive bleeding. If blood transfusions are necessary, note that transfusions may cause intolerance reactions such as anaphylaxis or other complex reactions. Despite best efforts, the results of spine surgery might not heal in terms of bone, soft tissues such as skin, fascia, ligaments, and joints. Additionally, in order to achieve best possible results, spine surgery may be carried out beyond the initially planned levels and involve decompression, fusion including insertion of hardware at levels other than the original intended area of surgical interest change some portions of the procedure in order to ensure the best possible outcomes. With spine surgery and spinal fusion, there are different off label uses of instrumentation (devices, implants and hardware) as well as biological substances (bone morphogenic proteins, demineralized bone matrix) as well as using extra bone from allograft sources (i.e. cadaver bone) or autograft (iliac crest bone, ribs, or the spine itself). The patient has been given information about these practices and their inherent risks and benefits. [facility] Physician Assistants are medically trained surgical providers who function in the outpatient, inpatient, and operating room setting under the direct supervision of the attending surgeon.They assist in the operating room with direct supervision of the attending surgeons. The patient has had a chance to review all the listed information, has been given print outs detailing this information, and has had all his/her questions answered to their satisfaction. It was my pleasure to have seen and examined Ms. Loaiza. In our visit today we have had a chance to go over my understanding of our patient's current condition, the natural course history without intervention and various interventional options. Questions were invited and answered, and the patient wishes to proceed as outlined above. I have seen and examined the patient for 25 minutes and we have spent more than 50% of the time in repeat and detailed counseling about the patient's condition, its natural course history with out and as much as can be predicted with surgery and re-review of various surgical treatment options. In conclusion,Ms. Loaiza and her spouse/partner requested we proceed with the above suggested surgery and are willing to accept risks and limitations of the suggested surgery as nature of the disease process and our best attempts at treatment for the condition. 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 Physical examination demonstrates positive straight leg raise and crossed straight leg raise tests, left lower extremity weakness (4+/4 proximally, 4/3 distally), decreased left Achilles reflex (1+), and L5-S1 dermatomal sensory changes. Advanced imaging (MRI/CT) reveals severe L5-S1 collapse with Modic changes, left paracentral disc herniation causing S1 nerve root displacement, disc osteophyte complex, and severe bilateral foraminal and central stenosis. The patient has failed multiple conservative treatments including physical therapy, home exercise program, CHIQUI injection at L5-S1, medications (including NSAIDs, steroids, and gabapentin), and alternative therapies (RICE, massage). MEDICAL NECESSITY: L5-S1 left laminoforaminotomy is medically necessary due to the presence of progressive neurological deficits including new left heel numbness, objective motor weakness, and diminished reflexes corresponding to imaging findings of severe structural pathology at L5-S1. Multiple conservative measures have failed to provide relief, including physical therapy, medications, and epidural steroid injection. The patient demonstrates clear clinical and radiographic evidence of nerve root compression with positive tension signs and corresponding dermatomal changes. The combination of progressive neurological compromise, functional decline, and documented structural pathology with failed conservative management makes surgical intervention necessary to prevent further neurological deterioration and restore functional capacity. The patient understands the risks and benefits of surgery and wishes to proceed with operative intervention given the progression of symptoms and impact on activities of daily living. MEDICAL NECESSITY: L5-S1 left laminoforaminotomy is medically necessary due to the presence of progressive neurological deficits including new left heel numbness, objective motor weakness, and diminished reflexes corresponding to imaging findings of severe structural pathology at L5-S1. Multiple conservative measures have failed to provide relief, including physical therapy, medications, and epidural steroid injection. The patient demonstrates clear clinical and radiographic evidence of nerve root compression with positive tension signs and corresponding dermatomal changes. The combination of progressive neurological compromise, functional decline, and documented structural pathology with failed conservative management makes surgical intervention necessary to prevent further neurological deterioration and restore functional capacity. The patient understands the risks and benefits of surgery and wishes to proceed with operative intervention given the progression of symptoms and impact on activities of daily living. FOLLOW UP: POST OP PLAN AT NEXT VISIT: RECHECK PATIENT EDUCATION: Medications Reviewed: YES In our visit today Ms. Loaiza and I have had a chance to go over my understanding of the patient's current condition, the natural course history without intervention and various interventional options. Questions were invited and answered, and the patient wishes to proceed as outlined above. I will be sure to keep you updated after Ms. Loaiza returns here for further follow-up. Thank you again for your referral. Please do not hesitate to contact me if you have any further questions. Signed and authenticated by: Daryl Wong [facility] [address] [place] [address] . This message is confidential, intended only for the named recipient(s) and may contain information that is privileged or exempt from disclosure under applicable law. If you are not the intended recipient(s), you are notified that the dissemination, distribution or copying of this information is prohibited. If you received this message in error, please notify the sender then delete this message. # SIGNED BY Daryl Larose (GOO)02/24/2024 07:41PM Past Medical History Past Medical History: Hypertension, Osteoarthritis (OA), Supraventricular Tachycardia (SVT), Thyroid Disorder Additional Past Medical History / Comment(s): MIGRAINES, History of Any Multi-Drug Resistant Organisms: None Reported Past Surgical History: Section, Cholecystectomy, Hysterectomy, Orthopedic Surgery Additional Past Surgical History / Comment(s): ARTHROPSCOPIC RIGHT KNEE, GASTRIC SLEEVE, ESSURE Past Anesthesia/Blood Transfusion Reactions: Previous Problems w/ Anesthesia Additional Past Anesthesia/Blood Transfusion Reaction / Comment(s): PROBLEMS WITH INTUBATION" with knee surgery couldn't intubate,broke teeth,states was a long time ago, no issue with surgeries after this incident. Smoking Status: Never smoker - Past Family History Mother Family Medical History: Deep Vein Thrombosis (DVT) Medications and Allergies Home Medications Medication Instructions Recorded Confirmed Type Levothyroxine Sodium [Synthroid] 75 mcg PO DAILY 12/09/23 02/19/24 History Losartan [Cozaar] 25 mg PO HS 12/09/23 02/19/24 History Allergies Allergy/AdvReac Type Severity Reaction Status Date / Time hydromorphone HCl AdvReac Abdominal Verified 02/19/24 16:30 [From Dilaudid] Pain Physical Examination Osteopathic Statement: *. No significant issues noted on an osteopathic structural exam other than those noted in the History and Physical/Consult.
[~2024-02-25 08:34] MED LIST: TRANEXAMIC 1,000 MG/100ML-NACL 1,000 MG in SALINE 1 100ML.BAG IVPB PRN
[2024-02-25] MEDS: ONDANSETRON 4 MG/2 ML VIAL IVP PRN (09:20)
[2024-02-25] MEDS: ACETAMINOPHEN TAB 500 MG TAB PO PRN (09:20)
[2024-02-25] MEDS: GABAPENTIN 300 MG CAP PO PRN (09:20)
[2024-02-25] MEDS: LACTATED RINGERS 1,000 ML IV ONE ×2 (09:23→10:19)
[2024-02-25] MEDS: LACTATED RINGERS 1,000 ML IV SCH (09:23)
[2024-02-25] MEDS: MIDAZOLAM 2 MG/2 ML VIAL IV PRN (09:49)
[2024-02-25] MEDS ORDERED: PHENYLEPHRINE 10 MG/ML VIAL ONE (10:15)
[2024-02-25] MEDS ORDERED: NEOSTIGMINE 1 MG/ML 10 ML VIAL ONE (10:15)
[2024-02-25] MEDS ORDERED: MIDAZOLAM 2 MG/2 ML VIAL ONE (10:15)
[2024-02-25] MEDS ORDERED: LIDOCAINE 1% INJ 10MG/ML (20 ML MDV) ONE (10:15)
[2024-02-25] MEDS ORDERED: PROPOFOL 10 MG/ML 20 ML VIAL IV ONE (10:15)
[2024-02-25] MEDS ORDERED: GLYCOPYRROLATE 0.2 MG/ML 2 ML VIAL ONE (10:15)
[2024-02-25] MEDS ORDERED: fentaNYL (PF) 50 MCG/ML 2 ML AMP ONE (10:15)
[2024-02-25] MEDS ORDERED: ePHEDrine 50 MG/ML 1 ML VIAL ONE (10:15)
[2024-02-25] MEDS ORDERED: SUCCINYLCHOLINE CHLORIDE 200 MG/10 ML VIAL IV ONE (10:15)
[2024-02-25] MEDS ORDERED: TRANEXAMIC 1,000 MG/100ML-NACL PREMIX BAG ONE (10:15)
[2024-02-25] MEDS ORDERED: ROCURONIUM 10 MG/ML (5 ML VIAL) IV ONE (10:15)
[2024-02-25] MEDS: BUPIVACAINE (PF) 0.5% 30 ML VIAL SQ ONE (11:02)
[2024-02-25] MEDS: THROMBIN (BOVINE) 5,000 UNIT VIAL TOPICAL ONE (11:02)
[2024-02-25] MEDS: LIDOCAINE 2%-EPI 1:100,000 20 ML VIAL SQ ONE (11:02)
--- NOTE | 2024-02-25 11:56 | P.OP ---
Date of Procedure: 02/25/24 Preoperative Diagnosis: 1. L5-S1 HNP WITH STENOSIS AND RADICULOPATHY 2. LLE RADCIULOPATHY 3. LOW BACK PAIN Postoperative Diagnosis: 1. L5-S1 HNP WITH STENOSIS AND RADICULOPATHY 2. LLE RADCIULOPATHY 3. LOW BACK PAIN Procedure(s) Performed: 1. 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 Physical examination demonstrates positive straight leg raise and crossed straight leg raise tests, left lower extremity weakness (4+/4 proximally, 4/3 distally), decreased left Achilles reflex (1+), and L5-S1 dermatomal sensory changes. Advanced imaging (MRI/CT) reveals severe L5-S1 collapse with Modic changes, left paracentral disc herniation causing S1 nerve root displacement, disc osteophyte complex, and severe bilateral foraminal and central stenosis. The patient has failed multiple conservative treatments including physical therapy, home exercise program, CHIQUI injection at L5-S1, medications (including NSAIDs, steroids, and gabapentin), and alternative therapies (RICE, massage). Description of Procedure: L5-S1 LAMINOFORAMINOTOMY WITH MICRODSCECTOMY The patient was seen and examined in the preoperative area. All preoperative protocols were followed. Informed consent was obtained, risks and benefits of the procedure were discussed at length. Risks including bleeding infection damage to the surrounding tissue and risk of reoperation were discussed with the patient. Risk of anesthesia up to and including was discussed with the patient. These are outlined in the risk review. They were willing to accept these risks and all the risks of surgery. The patient was given a weight-based dose of antibiotics in the form of 2 g Ancef. The patient was seen and evaluated by the anesthesia team who deemed them fit for surgery. The site was marked, the patient was willing to proceed with the procedure. The patient was transferred to the operative suite by the Department of anesthesia. They were then drifted off to sleep by the department anesthesia and GETA was performed. The patient tolerated this well. Dillon catheter was placed by nursing staff, a-traumatically. Once confirmation of lines and ventilation the patient was transferred to a prone James table very carefully. All bony prominences including wrists, elbows, axilla, chest, hips, and thighs, and feet were padded very well. Special attention was paid to the genitalia, and these were padded accordingly. SCDs were placed on bilateral lower extremities and were connected. Arms were well padded and placed on arm boards up and out in the 90/90 position. Once in position, again we confirmed good ventilation capabilities and that lines were running appropriately. The patients Lumbar spine was then exposed. 1010s were placed outlining the incision site. Standard alcohol was used to clean the incision site and allowed to dry. C-arm was used to needle localize the pedicles at L5-S1 and bio-darshan the patient and confirm level for incision which was marked with a skin marker. Operative briefing was performed with all teams and everyone in agreement to proceed. The patient was then prepped and draped in a normal sterile fashion. Timeout was then performed, and all parties agreed with the procedure to be performed. Skin incision was made over the previously marked area. Fluoroscopy was then used to target the lamina and facet joints on the right hand side of L5-S1 and initial dilator for tubular retractor system was used to identify this area. Once in a good position, sequential dilation was taken up to 26 mm and tube selected. A 120 mm tube was then placed and secured to the table. This was confirmed to be in good position on AP and Lateral imaging. Limited myomectomy was then done to identify the lamina, interlaminar space, and facet joints. Minh-laminotomy, partial medial facetectomy and foraminotomy were performed at L5-S1 using high speed nadja and Kerrison rongeur. The ligamentum flavum was removed with Kerrison and curette. Dura and roots protected. The disc space was identified along with the herniation. 11 blade was used to make small annulotomy and micro-pituitary used to remove loose disc fragments. Once fragments were removed, down biting curette was used to push any medial fragments down and towards the annulotomy and decompress centrally. The disc space was irrigated, and any loose fragments removed again. Bipolar was used f or hemostasis and scarring of the annulotomy. The area was irrigated, and meticulous hemostasis performed. The bed was inspected, and all roots have ample room and are decompressed along with the dura. There were no injuries. Retractors were then removed. The wound was copiously irrigated with NSS. The deep fascia was closed with 0 PDS. Deep sub-q with 0 Vicryl and superficial with 2-0 Vicryl. Skin closed with rizwana. The wound edges approximated well. The wound was then cleaned, and glue tape placed on the skin and allowed to dry. It was then Covered with an Opifoam dressing. The patient was then transferred off the table back to their hospital bed a- traumatically. They were extubated by the department of anesthesia. They were then transferred to PACU in stable condition having tolerated the procedure with no complications.
[2024-02-25 12:20] VITALS: TEMP 97
[2024-02-25] MEDS: fentaNYL (PF) 50 MCG/ML 2 ML AMP IV PRN (12:44)
--- NOTE | 2024-02-25 13:15 | XR ---
EXAMINATION TYPE: XR lumbar spine 2 or 3V, FL guidance operating room DATE OF EXAM: 02/25/2024 12:05 PM COMPARISON: Pre Operative Images if available both CT/MRI or plain film CLINICAL INDICATION: Female, 48 years old with history of M47.26 LUMBAR SPONDYLOSIS WITH RADICUOLPATH Y; TECHNIQUE: XR lumbar spine 2 or 3V, FL guidance operating room, multiple fluoroscopic images provided for procedure. Total fluoroscopy time: 7 seconds Total submitted images to PACS: 3 DAP: [id number] mGym2 Gycm2 uGym2 cGycm2 or equivalent. FINDINGS: Fluoroscopic images during injection for pain management demonstrate multilevel degeneration changes throughout the spine. No evidence for fracture. No acute process identified. IMPRESSION: 1. No evidence for intraoperative complication. 2. Please see the operative/procedural note for further details. [facility], , 02/25/2024 1:13 PM
[2024-02-25] MEDS: IV FLUID CONTINUATION 1,000 ML IV ONE (14:43)
[2024-02-25 14:50] VITALS: RESP 16
[2024-02-25] MEDS: HYDROcodone/APAP 7.5-325MG 1 EACH TAB PO ONE (14:53)
[2024-02-25 16:15] VITALS: BP 130/78; PULSE 84
[2024-02-25] MEDS: SCOPOLAMINE 1 MG/72 HR PATCH TRANSDERM STA (16:32)
== END 2024-02-25 16:38 | disposition home or self-care (01) ==
LOC: OR 08:34
PROVIDERS: ATTEND Orthopaedic Surgery
DX: M48.07 Spinal stenosis, lumbosacral region (principal); M47.817 Spondylosis without myelopathy or radiculopathy, lumbosacral region; M25.78 Osteophyte, vertebrae; I10 Essential (primary) hypertension; E03.9 Hypothyroidism, unspecified; M19.90 Unspecified osteoarthritis, unspecified site; G43.909 Migraine, unspecified, not intractable, without status migrainosus; R47.1 Dysarthria and anarthria; Z90.710 Acquired absence of both cervix and uterus; Z90.49 Acquired absence of other specified parts of digestive tract; Z88.5 Allergy status to narcotic agent; Z79.890 Hormone replacement therapy; Z79.899 Other long term (current) drug therapy
CPT/HCPCS: 72100; 63030; J2250; J0330; J2710; J0690; J2405; J2003; J3010; J2704; J2371; J0665; J1596